=== PATIENT | male | born 1940 | race Caucasian/White ===

== ENCOUNTER 2018-06-10 11:46 | Inpatient (IN) | payer MEDICARE, OTHER ==
[~2018-06-10] VITALS: Ht 172.7 cm; Wt 80.0 kg
[2018-06-10] MEDS ORDERED: CEFTRIAXONE 1 GM/50 ML (PMX) 50 ML IVPB ONE (16:30)
[2018-06-10] MEDS ORDERED: SOD CHLORIDE 0.9% 1,000 ML IV SCH (16:58)
[2018-06-10] MEDS ORDERED: NACL 0.9% 3 ML SYG IV SCH (17:00)
[2018-06-10] MEDS ORDERED: ACETAMINOPHEN 325 MG TAB PO PRN ×2 (17:00)
[2018-06-10] MEDS ORDERED: PERMETHRIN 1% 59 ML TOP ONE (17:00)
[2018-06-10] MEDS ORDERED: VANCOMYCIN IV PER PHARMACY XX SCH (17:00)
[2018-06-10] MEDS ORDERED: HYDROCODONE/APAP (5/325) TAB PO PRN (17:00)
[2018-06-10] MEDS ORDERED: morphine 2 MG INJ IV PRN (17:00)
[2018-06-10] MEDS ORDERED: ONDANSETRON 4 MG INJ IV PRN (17:00)
--- NOTE | 2018-06-10 17:32 | HP ---
Date/Time of Note Date/Time of Note DATE: 06/10/18 TIME: 17:31 Assessment/Plan VTE Prophylaxis Pharmacological prophylaxis: other Lines/Catheters IV Catheter Type (from Nrs): Peripheral IV Assessment/Plan Hospital Course Objective Physical exam General: Patient is laying in bed and answers questions appropriately Mentation: Patient is alert and oriented 4, Head: Normocephalic atraumatic Eyes: EOMI, pupils reactive to light Neck: Supple, nontender, midline Respiratory: Clear to auscultation bilaterally Cardiovascular: regular rate, no obvious murmurs Gastrointestinal: non-tender to palpation, bowel sounds heard. Neurological: Moves all extremities spontaneously Genitourinary: Very large left-sided inguinal hernia Skin: Bilateral lower extremity erythema, left side worse than right. Left side has some mild pus however no fluctuant areas of confirmed abscess. Assessment and plan Sepsis -Very mild, tachycardia, white count, lower extremity source -IV antibiotic, broad-spectrum -Lactic acid pending -blood cultures -IV fluid Bilateral cellulitis, left worse than right -Broad-spectrum antibiotic, due to homelessness will do both thank and Zosyn -ID consulted -CT of the lower extremity will be done due to severity of wound to rule out abscess, patient states he has a metal plate in his head so will defer MRI until x-ray confirms no plate. -Venous ultrasound to rule out DVT -Echocardiogram pending to help rule out cardiac causes of bilateral venous stasis versus cellulitis Mood disorder -Patient is paranoid, questionable schizophrenia, lipsmacking movements -Not suicidal, very pleasant, will consult kameron Redmond nurse practitioner for medication management Hypertension -Controlled now, monitor Anemia -No apparent source of bleeding, may be chronic -Iron studies and other anemia workup pending Large left-sided inguinal hernia -Asymptomatic, patient had for 10 years, follow-up outpatient. Disposition -IV antibiotics, infectious disease and psychiatry consultation appreciated Result Diagram: 06/10/18 1549 06/10/18 1549 Results 24hrs Laboratory Tests Test 06/10/18 15:49 White Blood Count 11.0 H Red Blood Count 2.94 L Hemoglobin 8.2 L Hematocrit 25.9 L Mean Corpuscular Volume 88.1 Mean Corpuscular Hemoglobin 27.9 L Mean Corpuscular Hemoglobin Concent 31.7 L Red Cell Distribution Width 14.0 Platelet Count 431 H Mean Platelet Volume 8.8 Immature Granulocytes % 0.500 H Neutrophils % 73.1 Lymphocytes % 8.0 L Monocytes % 7.6 Eosinophils % 10.3 H Basophils % 0.5 Nucleated Red Blood Cells % 0.0 Immature Granulocytes # 0.050 H Neutrophils # 8.0 H Lymphocytes # 0.9 Monocytes # 0.8 Eosinophils # 1.1 H Basophils # 0.1 Nucleated Red Blood Cells # 0.0 Absolute Reticulocyte Count 0.071 Percent Reticulocyte Count 2.4 H Sodium Level 144 Potassium Level 4.1 Chloride Level 103 Carbon Dioxide Level 33 H Anion Gap 8 Blood Urea Nitrogen 17 Creatinine 0.76 Est Glomerular Filtrat Rate mL/min Glucose Level 113 Calcium Level 9.2 Total Bilirubin 0.1 L Direct Bilirubin 0.00 Indirect Bilirubin 0.1 Aspartate Amino Transf (AST/SGOT) 22 Alanine Aminotransferase (ALT/SGPT) 18 Alkaline Phosphatase 92 Total Protein 6.8 Albumin 3.5 Globulin 3.30 H Albumin/Globulin Ratio 1.06 HPI/ROS Admit Date/Time Admit Date/Time Hx of Present Illness Patient is a homeless male with unknown past medical history who states that he was on the streets and came in complaining of left leg pain. Upon entry to the ED patient was noted to have a copious amount of bugs and what appeared to be lice on his head and emergency staff admitted patient for bila teral cellulitis. Patient also has a very large inguinal hernia on the left however he states that he has had this for over 10 years and does not bother him. Patient only complains of leg pain worse on the left and during this time he has already been decontaminated by the ED staff and appears clean however his da silva was shaved off and he does have lipsmacking movement and states that he is constantly paranoid. ED staff has also talked to him and explained that he needs constant redirection and states that something about Obama and other issues. Patient appears very comfortable patient denies chest pain, abdominal pain, nausea, vomiting, headache PMH/Family/Social Past Medical History Medications Current Medications Ceftriaxone Sodium 50 ml @ 100 mls/hr ONCE ONCE IVPB Last administered on 06/10/18at 16:54; Admin Dose 100 MLS/HR; Start 06/10/18 at 16:30; Stop 06/10/18 at 16:59 Ondansetron HCl (Zofran Inj) 4 mg BRIDGE ORDER PRN IV NAUSEA AND/OR VOMITING; Start 06/10/18 at 17:00; Stop 06/11/18 at 16:59 Acetaminophen (Tylenol Tab) 650 mg ER BRIDGE PRN PO MILD PAIN(1-3)OR ELEVATED TEMP; Start 06/10/18 at 17:00; Stop 06/11/18 at 16:59 Coded Allergies: No Known Allergy (Unverified , 06/10/18) Social History Smoking Status: Current every day smoker Exam/Review of Systems Vital Signs Vitals Vital Signs Date Temp Pulse Resp B/P (MAP) Pulse Ox O2 O2 Flow FiO2 Time Delivery Rate 06/10/18 98.1 90 22 119/53 100 Room Air 15:16 (75) LITZY MARCIAL Jun 10, 2018 17:32
[2018-06-10] MEDS ORDERED: VANCOMYCIN 1.5 GM in SOD CHLORIDE 0.9% 250 ML IVPB ONE (18:00)
--- NOTE | 2018-06-10 19:05 | ERD ---
ER Documentation Chief Complaint Chief Complaint LEFT LEG PAIN, BIZARRE BEHAVIOR HPI 78-year-old male homeless presenting with complaints of left leg pain. Patient is delusional but very cooperative. He states that he has been homeless for quite some time now with his last admission to the hospital 1 year ago. He was then in a fpc facility then discharged to the street. He is clearly unable to care for himself. Otherwise he does not complain of anything really. ROS All systems reviewed and are negative except as per history of present illness. Medications Home Meds No Active Prescriptions or Reported Meds Allergies Allergies: Coded Allergies: No Known Allergy (Unverified , 06/10/18) PMhx/Soc History of Surgery: Yes (appendectomy, tonscillectomy) Hx Miscellaneous Medical Probl: Yes (Left inguinal hernia) Hx Alcohol Use: No Hx Substance Use: No Hx Tobacco Use: Yes Smoking Status: Current every day smoker FmHx Family History: No diabetes Physical Exam Vitals Vital Signs Date Temp Pulse Resp B/P (MAP) Pulse Ox O2 O2 Flow FiO2 Time Delivery Rate 06/10/18 98.1 90 22 119/53 100 Room Air 15:16 (75) 06/10/18 98.1 74 18 173/74 99 11:50 (107) Physical Exam Const: Disheveled, unkempt, covered with lice Head: Atraumatic Eyes: Normal Conjunctiva ENT: Dry mucous membranes Neck: Full range of motion. No meningismus. Resp: Clear to auscultation bilaterally Cardio: Regular rate and rhythm, no murmurs Abd: Soft, non tender, non distended. Normal bowel sounds : Very large left inguinal hernia with no overlying skin changes and no tenderness to palpation. Penis appears normal. Scrotum normal. Skin: Cellulitis bilateral lower extremities. Covered with lice. Back: No midline or flank tenderness Ext: Bilateral lower extremity trace nonpitting edema with extensive cellulitis and skin breakdown. No obvious abscesses noted. No necrotic tissue noted. Neur: Awake and alert, oriented to self and place, no facial asymmetry, strength and sensations intact grossly Psych: Normal Mood and Affect. Delusional, no SI or HI Result Diagram: 06/10/18 1549 06/10/18 1549 Results 24 hrs Laboratory Tests Test 06/10/18 15:49 White Blood Count 11.0 10^3/ul Red Blood Count 2.94 10^6/ul Hemoglobin 8.2 g/dl Hematocrit 25.9 % Mean Corpuscular Volume 88.1 fl Mean Corpuscular Hemoglobin 27.9 pg Mean Corpuscular Hemoglobin Concent 31.7 g/dl Red Cell Distribution Width 14.0 % Platelet Count 431 10^3/UL Mean Platelet Volume 8.8 fl Immature Granulocytes % 0.500 % Neutrophils % 73.1 % Lymphocytes % 8.0 % Monocytes % 7.6 % Eosinophils % 10.3 % Basophils % 0.5 % Nucleated Red Blood Cells % 0.0 /100WBC Immature Granulocytes # 0.050 10^3/ul Neutrophils # 8.0 10^3/ul Lymphocytes # 0.9 10^3/ul Monocytes # 0.8 10^3/ul Eosinophils # 1.1 10^3/ul Basophils # 0.1 10^3/ul Nucleated Red Blood Cells # 0.0 10^3/ul Absolute Reticulocyte Count 0.071 X10^6 Percent Reticulocyte Count 2.4 % Sodium Level 144 mmol/L Potassium Level 4.1 mmol/L Chloride Level 103 mmol/L Carbon Dioxide Level 33 mmol/L Anion Gap 8 Blood Urea Nitrogen 17 mg/dl Creatinine 0.76 mg/dl Est Glomerular Filtrat Rate mL/min mL/min Glucose Level 113 mg/dl Calcium Level 9.2 mg/dl Iron Level 39 ug/dl Total Iron Binding Capacity 294 ug/dl Percent Iron Saturation 13 % SAT Ferritin 27.6 ng/ml Total Bilirubin 0.1 mg/dl Direct Bilirubin 0.00 mg/dl Indirect Bilirubin 0.1 mg/dl Aspartate Amino Transf (AST/SGOT) 22 IU/L Alanine Aminotransferase (ALT/SGPT) 18 IU/L Alkaline Phosphatase 92 IU/L Lactate Dehydrogenase 635 IU/L Total Protein 6.8 g/dl Albumin 3.5 g/dl Globulin 3.30 g/dl Albumin/Globulin Ratio 1.06 Current Medications Medications Dose Sig/Concetta Start Time Status Last (Trade) Ordered Route PRN Stop Time Admin Dose Reason Admin Ceftriaxone 50 ml @ ONCE ONCE 06/10/18 DC 06/10/18 Sodium 100 mls/hr IVPB 16:30 06/10/18 16:54 16:59 Procedures/MDM EMERGENT LABS AND DIAGNOSTIC STUDIES: Lab Results above were reviewed and interpreted by me. CBC: Mild anemia with thrombocytosis. CMP: No evidence of electrolyte abnormality, renal failure, hypoglycemia, liver failure, or biliary obstruction Initial Nursing notes reviewed. Previous Medical Records requested via the Electronic Health Record. EMERGENCY DEPARTMENT COURSE / MEDICAL DECISION MAKING: This homeless male that came in in the very bad condition covered with lice. He is clearly very gravely disabled and unable to care for himself. Decontamination was done in the ED. The patient has bilateral lower extremity cellulitis on exam. Inguinal hernia does not seem incarcerated. Patient will require admission for treatment of his cellulitis and likely fpc facility placement as he is unable to care for himself. Antibiotics were started. No evidence of sepsis. I also think his psychiatric issues need to be addressed as well. Accepting Care Team: Current data and ongoing care discussed. Time: Time of admission Primary Provider: Dr. Chaidez Departure Diagnosis: Primary Impression: Bilateral lower leg cellulitis Additional Impressions: Psychosis Psychosis type: unspecified psychosis type Qualified Codes: F29 - Unspecified psychosis not due to a substance or known physiological condition Body lice infestation Condition: KAMINI Gibson MD Jun 10, 2018 19:05
[2018-06-10] MEDS: PIPER-TAZO 3.375 GM IV (PMX) 100 ML IVPB SCH (20:04)
[2018-06-10] MEDS: HEPARIN 5,000 UNIT/1 ML VIAL SC SCH (21:13)
[2018-06-10 21:41] VITALS: Ht 172.7 cm; Wt 80.0 kg
--- NOTE | 2018-06-10 22:36 | CONS ---
DATE OF ADMISSION: 06/10/2018 DATE OF CONSULTATION: 06/10/2018 REASON FOR CONSULTATION: Antibiotic management. HISTORY OF PRESENT ILLNESS: Shaw Yu is a 78-year-old homeless male who presented to the emergen cy room with complaints of left leg pain. The patient seems to be delusional. He has been homeless for quite a long time. His last admissions in the hospital 1 year ago. The patient cannot care for himself. PAST SURGICAL HISTORY: Status post appendectomy, status post tonsillectomy, status post left inguina l hernia repair. FAMILY HISTORY: Noncontributory. SOCIAL HISTORY: He is a current every day smoker, does not drink or abuse drugs. ALLERGIES: NONE TO PENICILLIN, SULFA OR FOODS. MEDICATIONS: Per chart. REVIEW OF SYSTEMS: Noncontributory. PHYSICAL EXAMINATION: GENERAL: The patient is disheveled, unkempt covered with lice. SKIN: Without generalized rash. He is covered with lice. HEENT: Within normal limits. NECK: Supple. LYMPH NODES: None palpable. CHEST: Decreased breath sounds at the bases. HEART: Without murmur or gallop. ABDOMEN: Soft, nontender, without organosplenomegaly or masses. RECTAL AND GENITAL EXAM: There is a very large left inguinal hernia. EXTREMITIES: Without cyanosis or clubbing. He has bilateral lower extremity nonpitting edema with e xtensive cellulitis and skin breakdown. NEUROLOGIC: No focal neurological abnormalities. The patient appears to be delusional. ANCILLARY LABORATORY DATA: White count is 11,000, H and H of 8.2 and 25.9, platelet count 431,000. BUN and creatinine 17/0.76. IMPRESSION AND PLAN: The patient comes in with bilateral cellulitis, left greater than right. He is currently on vancomycin and Zosyn. I agree with the current therapy. A CT scan of the lower extrem ity is scheduled to rule out abscess. He says he has a metal plate in his head, so the MRI will be d eferred until x-ray confirms no plate. I will dictate my findings to the hospitalist. I want to tim nk them for asking us to see this unfortunate gentleman in consultation. Dictated By: LUISITO KENNEY MD, JD/SALVADOR Conf#: [id number] DID#: [id number] CC: LITZY MARCIAL MD;*EndCC*
[2018-06-11] MEDS: PIPER-TAZO 3.375 GM IV (PMX) 100 ML IVPB SCH ×4 (00:47→17:21)
[2018-06-11 01:42] VITALS: BP 158/88; PULSE 90; RESP 18
[2018-06-11] MEDS: PANTOPRAZOLE (EC) 40 MG TAB PO SCH (05:26)
[2018-06-11] MEDS: HEPARIN 5,000 UNIT/1 ML VIAL SC SCH ×3 (05:26→22:00)
[2018-06-11 07:30] VITALS: BP 133/65; PULSE 76; RESP 18
[2018-06-11] MEDS: VANCOMYCIN 1 GM 250 ML IVPB SCH ×2 (09:09→22:29)
--- NOTE | 2018-06-11 12:09 | QN ---
Documentation Comment Refused to be seen, states psychiatrist are crooks. FATOUMATA KABA NP Jun 11, 2018 12:09
[2018-06-11] MEDS: SOD FERRIC GLUC COMPLX 125 MG in SOD CHLORIDE 0.9% 100 ML IVPB SCH (14:06)
[2018-06-11 14:15] VITALS: BP 142/68; PULSE 88; RESP 16
--- NOTE | 2018-06-11 14:37 | CONS ---
Date/Time of Note Date/Time of Note DATE: 06/11/18 TIME: 14:36 Assessment/Plan Assessment/Plan Hospital Course Patient is alert in no distress. He is afebrile with a T-max of 99.7 no labs today wound culture growing gram-negative rods Antimicrobials Rigobertoo Jose Physical examination: Well-developed well-nourished elderly man who is alert in no distress. Head atraumatic normocephalic sclera nonicteric. Neck is supple. Chest rise symmetrical. Breath sounds clear. Heart: S1-S2. Abdomen soft bowel sounds present. Extremities with bilateral lower extremities chronic changes. Left lower extremity cellulitis with some scaly dry skin no drainage presently Assessment: 1. Acute on chronic bilateral lower extremity cellulitis, left more than right 2. Systemic inflammatory response syndrome with leukocytosis on admission 3. Homelessness 4. Anemia Plan: Patient remained stable we will continue him on current regimen and await for final cultures Result Diagram: 06/10/18 1549 06/10/18 1549 Results 24hrs Laboratory Tests Test 06/10/18 15:49 06/10/18 17:35 White Blood Count 11.0 H Red Blood Count 2.94 L Hemoglobin 8.2 L Hematocrit 25.9 L Mean Corpuscular Volume 88.1 Mean Corpuscular Hemoglobin 27.9 L Mean Corpuscular Hemoglobin Concent 31.7 L Red Cell Distribution Width 14.0 Platelet Count 431 H Mean Platelet Volume 8.8 Immature Granulocytes % 0.500 H Neutrophils % 73.1 Lymphocytes % 8.0 L Monocytes % 7.6 Eosinophils % 10.3 H Basophils % 0.5 Nucleated Red Blood Cells % 0.0 Immature Granulocytes # 0.050 H Neutrophils # 8.0 H Lymphocytes # 0.9 Monocytes # 0.8 Eosinophils # 1.1 H Basophils # 0.1 Nucleated Red Blood Cells # 0.0 Absolute Reticulocyte Count 0.071 Percent Reticulocyte Count 2.4 H Sodium Level 144 Potassium Level 4.1 Chloride Level 103 Carbon Dioxide Level 33 H Anion Gap 8 Blood Urea Nitrogen 17 Creatinine 0.76 Est Glomerular Filtrat Rate mL/min Glucose Level 113 Calcium Level 9.2 Iron Level 39 Total Iron Binding Capacity 294 Percent Iron Saturation 13 L Ferritin 27.6 Total Bilirubin 0.1 L Direct Bilirubin 0.00 Indirect Bilirubin 0.1 Aspartate Amino Transf (AST/SGOT) 22 Alanine Aminotransferase (ALT/SGPT) 18 Alkaline Phosphatase 92 Lactate Dehydrogenase 635 H Total Protein 6.8 Albumin 3.5 Globulin 3.30 H Albumin/Globulin Ratio 1.06 POC Venous Lactate 1.3 Consultation Date/Type/Reason Admit Date/Time Jun 10, 2018 at 16:55 Initial Consult Date Type of Consult id Exam/Review of Systems Vital Signs Vitals Vital Signs Date Temp Pulse Resp B/P (MAP) Pulse Ox O2 O2 Flow FiO2 Time Delivery Rate 06/11/18 99.0 88 16 142/68 95 Room Air 14:15 (92) Intake and Output 06/10/18 06/10/18 06/11/18 1515:00 23:00 07:00 IntakeIntake Total 150 ml 1210 ml OutputOutput Total 400 ml BalanceBalance 150 ml 810 ml Medications Medications Current Medications IV Flush (NS 3 ml) 3 ml PER PROTOCOL IV ; Start 06/10/18 at 17:00 Acetaminophen (Tylenol Tab) 650 mg Q6H PRN PO PAIN LEVEL 1-3 OR FEVER; Start 06/10/18 at 17:00 Acetaminophen/ Hydrocodone Bitart ([place] (5/325)) 1 tab Q6H PRN PO PAIN LEVEL 4-6; Start 06/10/18 at 17:00 Morphine Sulfate (morphine) 2 mg Q4H PRN IV PAIN LEVEL 7-10; Start 06/10/18 at 17:00 Pantoprazole (Protonix Tab) 40 mg DAILY@06 PO ; Start 06/11/18 at 06:00 Vancomycin HCl (Vanco Iv Per Pharmacy) VANCOMYCIN PER PHARMACY PER PROTOCOL XX ; Start 06/10/18 at 17:00 Piperacillin Sod/ Tazobactam Sod 100 ml @ 200 mls/hr Q6 IVPB Last administered on 06/11/18at 11:45; Admin Dose 200 MLS/HR; Start 06/10/18 at 18:00 Heparin Sodium (Porcine) (Heparin (5000 Units/1ml)) 5,000 unit Q8 SC ; Start 06/10/18 at 22:00 Vancomycin HCl 250 ml @ 125 mls/hr Q12H IVPB Last administered on 06/11/18at 09:09; Admin Dose 125 MLS/HR; Start 06/11/18 at 10:00 Ferric Sodium Gluconate Complex 125 mg/Sodium Chloride 100 ml @ 100 mls/hr DAILY@1300 IVPB Last administered on 06/11/18at 14:06; Admin Dose 100 MLS/HR; Start 06/11/18 at 13:00; Stop 06/13/18 at 13:59 Miscellaneous Information (*Rx Drug Level Order Reminder*) 1 ONCE ONCE XX ; Start 06/12/18 at 09:00; Stop 06/12/18 at 09:01 DEMOND HOWELL NP Jun 11, 2018 14:37
--- NOTE | 2018-06-11 14:52 | PN ---
Date/Time of Note Date/Time of Note DATE: 06/11/18 TIME: 14:50 Objective Vitals Vital Signs Date Temp Pulse Resp B/P (MAP) Pulse Ox O2 O2 Flow FiO2 Time Delivery Rate 06/11/18 99.0 88 16 142/68 95 Room Air 14:15 (92) Intake and Output 06/10/18 06/10/18 06/11/18 1515:00 23:00 07:00 IntakeIntake Total 150 ml 1210 ml OutputOutput Total 400 ml BalanceBalance 150 ml 810 ml Results Result Diagram: 06/10/18 1549 06/10/18 1549 Medications Medications Current Medications IV Flush (NS 3 ml) 3 ml PER PROTOCOL IV ; Start 06/10/18 at 17:00 Acetaminophen (Tylenol Tab) 650 mg Q6H PRN PO PAIN LEVEL 1-3 OR FEVER; Start at 17:00 Acetaminophen/ Hydrocodone Bitart ([place] (5/325)) 1 tab Q6H PRN PO PAIN LEVEL 4-6; Start 06/10/18 at 17:00 Morphine Sulfate (morphine) 2 mg Q4H PRN IV PAIN LEVEL 7-10; Start 06/10/18 at 17:00 Pantoprazole (Protonix Tab) 40 mg DAILY@06 PO ; Start 06/11/18 at 06:00 Vancomycin HCl (Vanco Iv Per Pharmacy) VANCOMYCIN PER PHARMACY PER PROTOCOL XX ; Start 06/10/18 at 17:00 Piperacillin Sod/ Tazobactam Sod 100 ml @ 200 mls/hr Q6 IVPB Last administered on 06/11/18at 11:45; Admin Dose 200 MLS/HR; Start 06/10/18 at 18:00 Heparin Sodium (Porcine) (Heparin (5000 Units/1ml)) 5,000 unit Q8 SC ; Start 06/10/18 at 22:00 Vancomycin HCl 250 ml @ 125 mls/hr Q12H IVPB Last administered on 06/11/18at 09:09; Admin Dose 125 MLS/HR; Start 06/11/18 at 10:00 Ferric Sodium Gluconate Complex 125 mg/Sodium Chloride 100 ml @ 100 mls/hr DAILY@1300 IVPB Last administered on 06/11/18at 14:06; Admin Dose 100 MLS/HR; Start 06/11/18 at 13:00; Stop 06/13/18 at 13:59 Miscellaneous Information (*Rx Drug Level Order Reminder*) 1 ONCE ONCE XX ; Start 06/12/18 at 09:00; Stop 06/12/18 at 09:01 VTE Prophylaxis [place] [facility] [place] risk: 3 [place]CD applied [place] [facility] [place] Yes Lines/Catheters IV Catheter Type: Peace in Place: No Assessment/Plan Hospital Course subjective refuses almost everything including law draw and CT scan, but gets IV medication Objective Physical exam General: Patient is laying in bed and answers questions appropriately Mentation: Patient is alert and oriented 4, Head: Normocephalic atraumatic Eyes: EOMI, pupils reactive to light Neck: Supple, nontender, midline Respiratory: Clear to auscultation bilaterally Cardiovascular: regular rate, no obvious murmurs Gastrointestinal: non-tender to palpation, bowel sounds heard. Neurological: Moves all extremities spontaneously Genitourinary: Very large left-sided inguinal hernia Skin: Bilateral lower extremity erythema, left side worse than right. Left side has some mild pus however no fluctuant areas of confirmed abscess. Assessment and plan Sepsis -Very mild, tachycardia, white count, lower extremity source -IV antibiotic, broad-spectrum -Lactic acid noted -blood cultures -IV fluid Bilateral cellulitis, left worse than right -Broad-spectrum antibiotic, due to homelessness will do both vancomycin and Zosyn -ID consulted -CT of the lower extremity or MRI refused per patient -Venous ultrasound to rule out DVT, negative -Echocardiogram pending to help rule out cardiac causes of bilateral venous stasis versus cellulitis Mood disorder -Patient is paranoid, questionable schizophrenia, lipsmacking movements -Not suicidal, very pleasant, will consult [facility] psych nurse practitioner for medication management, however patient refused to be seen Hypertension -Controlled now, monitor Anemia -No apparent source of bleeding, may be chronic -likely iron deficient -IV iron for now Large left-sided inguinal hernia -Asymptomatic, patient had for 10 years, follow-up outpatient. Disposition -IV antibiotics, ID recs -patient refuses lab draws and imaging LITZY MARCIAL Jun 11, 2018 14:52
--- NOTE | 2018-06-11 19:36 | RADRPT ---
Echocardiogram Report Patient Name: CIRILO AWAD Gender: Male Date: 1940 Study Date: 11-Jun-2018 Flight Attendant Inflight Services: [employer] [facility] Location: [address] Ref. Physician: LITZY MARCIAL Quality: Adequate Procedures: Transthoracic echocardiogram with complete 2D, M-Mode, and doppler examination. Indications: Congestive Heart Failure?. 2D/M Mode Doppler Measurement Value Normal Ranges Measurement Value Normal Ranges LVIDd 2D 5.0 3.5 - 5.6 cm AV Peak Jeff 1.4 m/sec LVIDs 2D 3.3 2.1 - 4.1 cm AV Peak PG 8.0 mmHg FS 2D 34.8 % LVOT Peak Jeff 1.3 m/sec LVPWd 2D 1.0 0.6 - 1.1 cm LVOT Peak PG 7.0 mmHg IVSd 2D 1.4 0.6 - 1.1 cm MV E Peak Jeff 1.0 m/sec IVS/LVPW 2D 1.4 MV A Peak Jeff 1.1 m/sec AoR Diam 2D 3.3 2.0 - 3.7 cm MV E/A 0.8 LA/Ao 2D 1 0 - 1 MV Decel Time 194 msec EDV 2D 125.0 cm3 MV E/A 0.8 ESV 2D 34.6 cm3 TR Peak Jeff 3.0 m/sec LA Dimen 2D 4.2 2.3 - 4.0 cm TR Peak PG 36.0 mmHg RVSP 51.0 mmHg Findings Left Ventricle: Normal left ventricular systolic function. Normal left ventricular cavity size. Sigmoid septum. Ejection fraction is visually estimated at 60 %. Tissue Doppler/Mitral Doppler indices are consistent with impaired relaxation (Stage I diastolic dysfunction). Right Ventricle: Normal right ventricular size. Normal right ventricular systolic function. Left Atrium: There is mild enlargement of left atrium. Right Atrium: The right atrium is normal in size. Mitral Valve: Mild mitral leaflet calcification. Mild mitral annular calcification. Trace mitral regurgitation. Aortic Valve: No significant aortic stenosis or insufficiency. Aortic cusps appear mildly calcified. Trace aortic valve regurgitation. Tricuspid Valve: Normal appearance of the tricuspid valve. Estimated peak PA systolic pressure 51 mmHg. There is trace tricuspid regurgitation. Pulmonic Valve: Pulmonic valve not well visualized. There is trace pulmonic regurgitation. Pericardium: Normal pericardium with no significant pericardial effusion. Aorta: Normal aortic root. IVC: Dilated inferior vena cava with poor inspiratory collapse consistent with elevated right atrial pressures. Conclusions Normal left ventricular systolic function. Normal left ventricular cavity size. Sigmoid septum. Ejection fraction is visually estimated at 60 %. Tissue Doppler/Mitral Doppler indices are consistent with impaired relaxation (Stage I diastolic dysfunction). Normal right ventricular size. Normal right ventricular systolic function. There is mild enlargement of left atrium. The right atrium is normal in size. Estimated peak PA systolic pressure 51 mmHg. There is trace tricuspid regurgitation. No significant valvular stenosis or regurgitation seen. Normal pericardium with no significant pericardial effusion. Electronically Signed By: Henrry Aly 11-Jun-2018 19:35:59 -0800 Patient Name: CIRILO AWAD Study Date: [id number]
[2018-06-11 19:41] VITALS: BP 162/74; PULSE 93; RESP 18
[2018-06-12] MEDS: PIPER-TAZO 3.375 GM IV (PMX) 100 ML IVPB SCH ×3 (00:50→13:33)
[2018-06-12] MEDS: PANTOPRAZOLE (EC) 40 MG TAB PO SCH (05:40)
[2018-06-12] MEDS: HEPARIN 5,000 UNIT/1 ML VIAL SC SCH ×3 (05:40→21:12)
[2018-06-12 08:32] VITALS: BP 163/78; PULSE 86; RESP 18
[2018-06-12] MEDS: VANCOMYCIN 1 GM 250 ML IVPB SCH (10:55)
[2018-06-12] MEDS: LISINOPRIL 5 MG TAB PO SCH (13:33)
[2018-06-12] MEDS ORDERED: morphine LIQ (10 MG/5 ML) CUP PO PRN (14:30)
--- NOTE | 2018-06-12 14:46 | CONS ---
Date/Time of Note Date/Time of Note DATE: 06/12/18 TIME: 14:45 Assessment/Plan Assessment/Plan Hospital Course Patient is alert in no distress. Left lower extremity drainage culture growing Proteus vulgaris, susceptible to Bactrim. Antimicrobials Vanco Zosyn Physical examination: Well-developed well-nourished elderly man who is alert in no distress. Head atraumatic normocephalic sclera nonicteric. Neck is supple. Chest rise symmetrical. Breath sounds clear. Heart: S1-S2. Abdomen soft bowel sounds present. Extremities with bilateral lower extremities chronic changes. Left lower extremity cellulitis with some scaly dry skin no drainage presently Assessment: 1. Acute on chronic bilateral lower extremity cellulitis, left more than right 2. Systemic inflammatory response syndrome with leukocytosis on admission 3. Homelessness 4. Anemia Plan: Patient remained stable. Will change antibiotics to oral Bactrim and add Silvadene cream to lower extremities Result Diagram: 06/11/18 1524 06/11/18 1524 Results 24hrs Laboratory Tests Test 06/11/18 15:24 06/12/18 09:49 White Blood Count 10.3 Red Blood Count 2.70 L Hemoglobin 7.5 L Hematocrit 24.0 L Mean Corpuscular Volume 88.9 Mean Corpuscular Hemoglobin 27.8 L Mean Corpuscular Hemoglobin Concent 31.3 L Red Cell Distribution Width 14.1 Platelet Count 351 Mean Platelet Volume 8.8 Immature Granulocytes % 0.400 Neutrophils % 71.1 Lymphocytes % 7.8 L Monocytes % 7.2 Eosinophils % 13.0 H Basophils % 0.5 Nucleated Red Blood Cells % 0.0 Immature Granulocytes # 0.040 H Neutrophils # 7.3 Lymphocytes # 0.8 Monocytes # 0.7 Eosinophils # 1.3 H Basophils # 0.1 Nucleated Red Blood Cells # 0.0 Sodium Level 137 Potassium Level 4.3 Chloride Level 104 Carbon Dioxide Level 27 Anion Gap 6 Blood Urea Nitrogen 14 Creatinine 0.73 Est Glomerular Filtrat Rate mL/min Glucose Level 102 Hemoglobin A1c 6.2 H Calcium Level 8.7 Magnesium Level 2.1 Total Bilirubin 0.0 L Direct Bilirubin 0.00 Indirect Bilirubin 0.0 Aspartate Amino Transf (AST/SGOT) 16 Alanine Aminotransferase (ALT/SGPT) 12 L Alkaline Phosphatase 79 Total Protein 6.5 Albumin 2.9 L Globulin 3.60 H Albumin/Globulin Ratio 0.80 Vancomycin Level Trough 11.5 Consultation Date/Type/Reason Admit Date/Time Jun 10, 2018 at 16:55 Initial Consult Date Type of Consult id Exam/Review of Systems Vital Signs Vitals Vital Signs Date Temp Pulse Resp B/P (MAP) Pulse Ox O2 O2 Flow FiO2 Time Delivery Rate 06/12/18 99.2 86 18 163/78 93 Room Air 08:32 (106) Intake and Output 06/11/18 06/11/18 06/12/18 1515:00 23:00 07:00 IntakeIntake Total 1290 ml 1120 ml 450 ml OutputOutput Total 1140 ml 1075 ml 350 ml BalanceBalance 150 ml 45 ml 100 ml Medications Medications Current Medications IV Flush (NS 3 ml) 3 ml PER PROTOCOL IV ; Start 06/10/18 at 17:00 Acetaminophen (Tylenol Tab) 650 mg Q6H PRN PO PAIN LEVEL 1-3 OR FEVER; Start 06/10/18 at 17:00 Acetaminophen/ Hydrocodone Bitart ([place] (5/325)) 1 tab Q6H PRN PO PAIN LEVEL 4-6; Start 06/10/18 at 17:00 Pantoprazole (Protonix Tab) 40 mg DAILY@06 PO ; Start 06/11/18 at 06:00 Vancomycin HCl (Vanco Iv Per Pharmacy) VANCOMYCIN PER PHARMACY PER PROTOCOL XX ; Start 06/10/18 at 17:00 Piperacillin Sod/ Tazobactam Sod 100 ml @ 200 mls/hr Q6 IVPB Last administered on 06/12/18at 13:33; Admin Dose 200 MLS/HR; Start 06/10/18 at 18:00 Heparin Sodium (Porcine) (Heparin (5000 Units/1ml)) 5,000 unit Q8 SC ; Start 06/10/18 at 22:00 Vancomycin HCl 250 ml @ 125 mls/hr Q12H IVPB Last administered on 06/12/18at 10:55; Admin Dose 125 MLS/HR; Start 06/11/18 at 10:00 Ferric Sodium Gluconate Complex 125 mg/Sodium Chloride 100 ml @ 100 mls/hr DAILY@1300 IVPB Last administered on 06/11/18at 14:06; Admin Dose 100 MLS/HR; Start 06/11/18 at 13:00; Stop 06/13/18 at 13:59 Lisinopril (Zestril) 5 mg DAILY PO Last administered on 06/12/18at 13:33; Admin Dose 5 MG; Start 06/12/18 at 11:30 Morphine Sulfate (morphine) 6 mg Q4H PRN PO SEVERE PAIN LEVEL 7-10; Start 06/12/18 at 14:30 DEMOND HOWELL NP Jun 12, 2018 14:46
[2018-06-12] MEDS: SOD FERRIC GLUC COMPLX 125 MG in SOD CHLORIDE 0.9% 100 ML IVPB SCH (15:17)
--- NOTE | 2018-06-12 15:23 | PN ---
Date/Time of Note Date/Time of Note DATE: 06/12/18 TIME: 15:21 Objective Vitals Vital Signs Date Temp Pulse Resp B/P (MAP) Pulse Ox O2 O2 Flow FiO2 Time Delivery Rate 06/12/18 99.2 86 18 163/78 93 Room Air 08:32 (106) Intake and Output 06/11/18 06/11/18 06/12/18 1515:00 23:00 07:00 IntakeIntake Total 1290 ml 1120 ml 450 ml OutputOutput Total 1140 ml 1075 ml 350 ml BalanceBalance 150 ml 45 ml 100 ml Results Result Diagram: 06/11/18 1524 06/11/18 1524 Medications Medications Current Medications IV Flush (NS 3 ml) 3 ml PER PROTOCOL IV ; Start 06/10/18 at 17:00 Acetaminophen (Tylenol Tab) 650 mg Q6H PRN PO PAIN LEVEL 1-3 OR FEVER; Start 06/10/18 at 17:00 Acetaminophen/ Hydrocodone Bitart ([place] (5/325)) 1 tab Q6H PRN PO PAIN LEVEL 4-6; Start 06/10/18 at 17:00 Pantoprazole (Protonix Tab) 40 mg DAILY@06 PO ; Start 06/11/18 at 06:00 Heparin Sodium (Porcine) (Heparin (5000 Units/1ml)) 5,000 unit Q8 SC ; Start at 22:00 Ferric Sodium Gluconate Complex 125 mg/Sodium Chloride 100 ml @ 100 mls/hr DAILY@1300 IVPB Last administered on 06/12/18at 15:17; Admin Dose 100 MLS/HR; Start 06/11/18 at 13:00; Stop 06/13/18 at 13:59 Lisinopril (Zestril) 5 mg DAILY PO Last administered on 06/12/18at 13:33; Admin Dose 5 MG; Start 06/12/18 at 11:30 Morphine Sulfate (morphine) 6 mg Q4H PRN PO SEVERE PAIN LEVEL 7-10; Start 06/12/18 at 14:30 Trimethoprim/ Sulfamethoxazole (Bactrim (Ds)) 1 tab BID NGT ; Start 06/12/18 at 21:00 Silver Sulfadiazine (Thermazene 1% 25 Gm) 1 applic BID TOP ; Start 06/12/18 at 21:00 VTE Prophylaxis Risk score (from Nsg)>0 risk: 3 SCD applied (from Ns): No SCD contraindication: other Lines/Catheters IV Catheter Type: Peace in Place: No Assessment/Plan Hospital Course subjective patient continues to be compliant with certain medications, but doesn't want lab draws Objective Physical exam General: Patient is laying in bed and answers questions appropriately Mentation: Patient is alert and oriented 4, Head: Normocephalic atraumatic Eyes: EOMI, pupils reactive to light Neck: Supple, nontender, midline Respiratory: Clear to auscultation bilaterally Cardiovascular: regular rate, no obvious murmurs Gastrointestinal: non-tender to palpation, bowel sounds heard. Neurological: Moves all extremities spontaneously Genitourinary: Very large left-sided inguinal hernia Skin: Bilateral lower extremity erythema, left side worse than right. Left side has some mild pus however no fluctuant areas of confirmed abscess. Assessment and plan Sepsis -Very mild, tachycardia, white count, lower extremity source -IV antibiotic now changed to oral -Lactic acid noted -blood cultures -IV fluid stopped Bilateral cellulitis, left worse than right -on bactrim now -ID consulted -CT of the lower extremity or MRI refused per patient -Venous ultrasound to rule out DVT, negative -Echocardiogram noted Mood disorder -Patient is paranoid, questionable schizophrenia, lipsmacking movements -Not suicidal, very pleasant, will consult [facility] psych nurse practitioner for medication management, however patient refused to be seen Hypertension -Controlled now, monitor Anemia -No apparent source of bleeding, may be chronic -likely iron deficient -IV iron for now Large left-sided inguinal hernia -Asymptomatic, patient had for 10 years, follow-up outpatient. Disposition -antibiotics, ID recs -patient refuses lab draws and imaging -patient wants placement, CM aware LITZY MARCIAL Jun 12, 2018 15:23
[2018-06-12 17:29] VITALS: BP 149/71; PULSE 85; RESP 18
[2018-06-12 19:46] VITALS: BP 148/70; PULSE 88; RESP 21
[2018-06-12] MEDS: SILVER SULFADIAZINE 1% 25 GM CR TOP SCH (20:58)
[2018-06-12] MEDS ORDERED: SILVER SULFADIAZINE 1% 400 GM CR TOP SCH (21:00)
[2018-06-12] MEDS: TRIMETHOPRIM/SULFAMETHOX (DS) TAB NGT SCH (21:29)
[2018-06-13 02:00] VITALS: BP 142/77; PULSE 88; RESP 20
[2018-06-13] MEDS: HEPARIN 5,000 UNIT/1 ML VIAL SC SCH ×3 (05:04→22:00)
[2018-06-13 07:55] VITALS: BP 165/80; PULSE 80; RESP 18
[2018-06-13] MEDS: TRIMETHOPRIM/SULFAMETHOX (DS) TAB NGT SCH ×2 (08:46→20:38)
[2018-06-13] MEDS: LISINOPRIL 5 MG TAB PO SCH (08:46)
[2018-06-13] MEDS: SILVER SULFADIAZINE 1% 25 GM CR TOP SCH ×2 (08:47→20:38)
[2018-06-13 11:49] VITALS: BP 120/68; PULSE 78
--- NOTE | 2018-06-13 12:06 | PN ---
Date/Time of Note Date/Time of Note DATE: 06/13/18 TIME: 11:59 Objective Vitals Vital Signs Date Temp Pulse Resp B/P (MAP) Pulse Ox O2 O2 Flow FiO2 Time Delivery Rate 06/13/18 78 120/68 11:49 (85) 06/13/18 97.7 18 94 Room Air 07:55 Intake and Output 06/12/18 06/12/18 06/13/18 1515:00 23:00 07:00 IntakeIntake Total 1670 ml 480 ml 400 ml OutputOutput Total 1575 ml 350 ml 1400 ml BalanceBalance 95 ml 130 ml -1000 ml Results Result Diagram: 06/11/18 1524 06/11/18 1524 Medications Medications Current Medications IV Flush (NS 3 ml) 3 ml PER PROTOCOL IV ; Start 06/10/18 at 17:00 Acetaminophen (Tylenol Tab) 650 mg Q6H PRN PO PAIN LEVEL 1-3 OR FEVER; Start 06/10/18 at 17:00 Acetaminophen/ Hydrocodone Bitart ([place] (5/325)) 1 tab Q6H PRN PO PAIN LEVEL 4-6; Start 06/10/18 at 17:00 Heparin Sodium (Porcine) (Heparin (5000 Units/1ml)) 5,000 unit Q8 SC ; Start 06/10/18 at 22:00 Ferric Sodium Gluconate Complex 125 mg/Sodium Chloride 100 ml @ 100 mls/hr DAILY@1300 IVPB Last administered on 06/12/18at 15:17; Admin Dose 100 MLS/HR; Start 06/11/18 at 13:00; Stop 06/13/18 at 13:59 Morphine Sulfate (morphine) 6 mg Q4H PRN PO SEVERE PAIN LEVEL 7-10; Start 06/12/18 at 14:30 Trimethoprim/ Sulfamethoxazole (Bactrim (Ds)) 1 tab BID NGT Last administered on 06/13/18at 08:46; Admin Dose 1 TAB; Start 06/12/18 at 21:00 Silver Sulfadiazine (Thermazene 1% 25 Gm) 1 applic BID TOP Last administered on 06/13/18at 08:47; Admin Dose 1 APPLIC; Start 06/12/18 at 21:00 Lisinopril (Zestril) 10 mg DAILY PO ; Start 06/14/18 at 09:00 VTE Prophylaxis Risk score (from Nsg)>0 risk: 4 SCD applied (from Ns): No SCD contraindication: other Lines/Catheters IV Catheter Type: Peace in Place: No Assessment/Plan Hospital Course subjective patient continues to be compliant with certain medications, but doesn't want lab draws Objective Physical exam General: Patient is laying in bed and answers questions appropriately Mentation: Patient is alert and oriented 4, Head: Normocephalic atraumatic Eyes: EOMI, pupils reactive to light Neck: Supple, nontender, midline Respiratory: Clear to auscultation bilaterally Cardiovascular: regular rate, no obvious murmurs Gastrointestinal: non-tender to palpation, bowel sounds heard. Neurological: Moves all extremities spontaneously Genitourinary: Very large left-sided inguinal hernia Skin: Bilateral lower extremity erythema, left side worse than right. Left side has some mild pus however no fluctuant areas of confirmed abscess. Assessment and plan Bilateral cellulitis, left worse than right -on bactrim now -ID consulted -CT of the lower extremity or MRI refused per patient -Venous ultrasound to rule out DVT, negative -Echocardiogram noted Mood disorder -Patient is paranoid, questionable schizophrenia, lipsmacking movements -Not suicidal, very pleasant, will consult [facility] psych nurse practitioner for medication management, however patient refused to be seen Hypertension -Controlled now, monitor Anemia -No apparent source of bleeding, may be chronic -likely iron deficient -IV iron for now Large left-sided inguinal hernia -Asymptomatic, patient had for 10 years, follow-up outpatient. Disposition -antibiotics, ID recs -patient refuses lab draws and imaging -patient wants placement, CM aware LITZY MARCIAL Jun 13, 2018 12:06
[2018-06-13] MEDS: SOD FERRIC GLUC COMPLX 125 MG in SOD CHLORIDE 0.9% 100 ML IVPB SCH (13:35)
[2018-06-13 13:45] VITALS: BP 137/66; PULSE 90; RESP 18
--- NOTE | 2018-06-13 19:16 | CONS ---
Date/Time of Note Date/Time of Note DATE: 06/13/18 TIME: 19:15 Assessment/Plan Assessment/Plan Hospital Course 1405 Patient is alert, feels good, no fevers Left lower extremity drainage culture growing Proteus vulgaris, susceptible to Bactrim. Antimicrobials: Bactrim Physical examination: Well-developed well-nourished elderly man who is alert in no distress. Head atraumatic normocephalic sclera nonicteric. Neck is supple. Chest rise symmetrical. Breath sounds clear. Heart: S1-S2. Abdomen soft bowel sounds present. Extremities with bilateral lower extremities chronic changes. Left lower extremity cellulitis with some scaly dry skin no drainage presently Assessment: 1. Acute on chronic bilateral lower extremity cellulitis, left more than right 2. Systemic inflammatory response syndrome with leukocytosis on admission 3. Homelessness 4. Anemia Plan: Patient remained stable. Continue abx/topical Silvadene, monitor renal f-n Result Diagram: 06/11/18 1524 06/11/18 1524 Consultation Date/Type/Reason Admit Date/Time Jun 10, 2018 at 16:55 Initial Consult Date Type of Consult id Exam/Review of Systems Vital Signs Vitals Vital Signs Date Temp Pulse Resp B/P (MAP) Pulse Ox O2 O2 Flow FiO2 Time Delivery Rate 06/13/18 97.7 90 18 137/66 92 Room Air 13:45 (89) Intake and Output 06/12/18 06/12/18 06/13/18 1515:00 23:00 07:00 IntakeIntake Total 1670 ml 480 ml 400 ml OutputOutput Total 1575 ml 350 ml 1400 ml BalanceBalance 95 ml 130 ml -1000 ml Medications Medications Current Medications IV Flush (NS 3 ml) 3 ml PER PROTOCOL IV ; Start 06/10/18 at 17:00 Acetaminophen (Tylenol Tab) 650 mg Q6H PRN PO PAIN LEVEL 1-3 OR FEVER; Start 06/10/18 at 17:00 Acetaminophen/ Hydrocodone Bitart ([place] (5/325)) 1 tab Q6H PRN PO PAIN LEVEL 4-6; Start 06/10/18 at 17:00 Heparin Sodium (Porcine) (Heparin (5000 Units/1ml)) 5,000 unit Q8 SC ; Start 06/10/18 at 22:00 Morphine Sulfate (morphine) 6 mg Q4H PRN PO SEVERE PAIN LEVEL 7-10; Start 06/12/18 at 14:30 Trimethoprim/ Sulfamethoxazole (Bactrim (Ds)) 1 tab BID NGT Last administered on 06/13/18at 08:46; Admin Dose 1 TAB; Start 06/12/18 at 21:00 Silver Sulfadiazine (Thermazene 1% 25 Gm) 1 applic BID TOP Last administered on 06/13/18at 08:47; Admin Dose 1 APPLIC; Start 06/12/18 at 21:00 Lisinopril (Zestril) 10 mg DAILY PO ; Start 06/14/18 at 09:00 DEMOND HOWELL NP Jun 13, 2018 19:16
[2018-06-13 20:00] VITALS: BP 124/60; PULSE 90; RESP 18
[2018-06-14 03:07] VITALS: BP 128/60; PULSE 74; RESP 18
[2018-06-14] MEDS: HEPARIN 5,000 UNIT/1 ML VIAL SC SCH ×3 (06:00→21:07)
[2018-06-14 07:34] VITALS: BP 132/65; PULSE 69; RESP 18
[2018-06-14] MEDS: TRIMETHOPRIM/SULFAMETHOX (DS) TAB NGT SCH ×2 (08:36→21:04)
[2018-06-14] MEDS: LISINOPRIL 10 MG TAB PO SCH (08:37)
[2018-06-14] MEDS: SILVER SULFADIAZINE 1% 25 GM CR TOP SCH ×2 (08:40→21:00)
--- NOTE | 2018-06-14 12:15 | PN ---
Date/Time of Note Date/Time of Note DATE: 06/14/18 TIME: 12:15 Objective Vitals Vital Signs Date Temp Pulse Resp B/P (MAP) Pulse Ox O2 O2 Flow FiO2 Time Delivery Rate 06/14/18 98.8 69 18 132/65 94 Room Air 07:34 (87) Intake and Output 06/13/18 06/13/18 06/14/18 1515:00 23:00 07:00 IntakeIntake Total 980 ml 840 ml OutputOutput Total 1200 ml 1200 ml BalanceBalance -220 ml -360 ml Results Result Diagram: 06/11/18 1524 06/11/18 1524 Medications Medications Current Medications IV Flush (NS 3 ml) 3 ml PER PROTOCOL IV ; Start 06/10/18 at 17:00 Acetaminophen (Tylenol Tab) 650 mg Q6H PRN PO PAIN LEVEL 1-3 OR FEVER; Start 06/10/18 at 17:00 Acetaminophen/ Hydrocodone Bitart ([place] (5/325)) 1 tab Q6H PRN PO PAIN LEVEL 4-6; Start 06/10/18 at 17:00 Heparin Sodium (Porcine) (Heparin (5000 Units/1ml)) 5,000 unit Q8 SC ; Start 06/10/18 at 22:00 Morphine Sulfate (morphine) 6 mg Q4H PRN PO SEVERE PAIN LEVEL 7-10; Start 06/12/18 at 14:30 Trimethoprim/ Sulfamethoxazole (Bactrim (Ds)) 1 tab BID NGT Last administered on 06/14/18at 08:36; Admin Dose 1 TAB; Start 06/12/18 at 21:00 Silver Sulfadiazine (Thermazene 1% 25 Gm) 1 applic BID TOP Last administered on 06/14/18at 08:40; Admin Dose 1 APPLIC; Start 06/12/18 at 21:00 Lisinopril (Zestril) 10 mg DAILY PO Last administered on 06/14/18at 08:37; Admin Dose 10 MG; Start 06/14/18 at 09:00 VTE Prophylaxis Risk score (from Nsg)>0 risk: 4 SCD applied (from Nsg): No SCD contraindication: other Lines/Catheters IV Catheter Type: Peace in Place: No Assessment/Plan Hospital Course subjective patient continues to be compliant with certain medications, but doesn't want lab draws Objective Physical exam General: Patient is laying in bed and answers questions appropriately Mentation: Patient is alert and oriented 4, Head: Normocephalic atraumatic Eyes: EOMI, pupils reactive to light Neck: Supple, nontender, midline Respiratory: Clear to auscultation bilaterally Cardiovascular: regular rate, no obvious murmurs Gastrointestinal: non-tender to palpation, bowel sounds heard. Neurological: Moves all extremities spontaneously Genitourinary: Very large left-sided inguinal hernia Skin: Bilateral lower extremity erythema, left side worse than right. Left side has some mild pus however no fluctuant areas of confirmed abscess. Assessment and plan Bilateral cellulitis, left worse than right -on bactrim now -ID consulted -CT of the lower extremity or MRI refused per patient -Venous ultrasound to rule out DVT, negative -Echocardiogram noted Mood disorder -Patient is paranoid, questionable schizophrenia, lipsmacking movements -Not suicidal, very pleasant, will consult [facility] psych nurse practitioner for medication management, however patient refused to be seen Hypertension -Controlled now, monitor Anemia -No apparent source of bleeding, may be chronic -likely iron deficient -IV iron for now Large left-sided inguinal hernia -Asymptomatic, patient had for 10 years, follow-up outpatient. Disposition -antibiotics, ID recs -patient refuses lab draws and imaging -patient wants placement, CM aware LITZY MARCIAL Jun 14, 2018 12:15
--- NOTE | 2018-06-14 12:50 | CONS ---
Date/Time of Note Date/Time of Note DATE: 06/14/18 TIME: 12:47 Assessment/Plan Assessment/Plan Result Diagram: 06/11/18 1524 06/11/18 1524 Consultation Date/Type/Reason Admit Date/Time Jun 10, 2018 at 16:55 Initial Consult Date SUBJECTIVE: PT is awake, alert, no fevers. VS: stable T: 98.8 LABS: reviewed. MICRO: Left lower extremity drainage culture growing Proteus vulgaris, susceptible to Bactrim. Antimicrobials: Bactrim DS Physical examination: GEN: Well-developed well-nourished elderly man who is alert in no distress. HENT: Head atraumatic normocephalic sclera nonicteric. Neck is supple. Pulm: Chest rise symmetrical. Breath sounds clear. Heart: S1-S2. ABDOMEN: soft bowel sounds present. Extremities with bilateral lower extremities chronic changes. Left lower extremity cellulitis with some scaly dry skin no drainage presently Assessment: 1. Acute on chronic bilateral lower extremity cellulitis, left more than right 2. Systemic inflammatory response syndrome with leukocytosis on admission 3. Homelessness 4. Anemia Plan: Patient remained stable. Continue same abx, topical Silvadene, monitor renal f-n Exam/Review of Systems Vital Signs Vitals Vital Signs Date Temp Pulse Resp B/P (MAP) Pulse Ox O2 O2 Flow FiO2 Time Delivery Rate 06/14/18 98.8 69 18 132/65 94 Room Air 07:34 (87) Intake and Output 06/13/18 06/13/18 06/14/18 1515:00 23:00 07:00 IntakeIntake Total 980 ml 840 ml OutputOutput Total 1200 ml 1200 ml BalanceBalance -220 ml -360 ml Medications Medications Current Medications IV Flush (NS 3 ml) 3 ml PER PROTOCOL IV ; Start 06/10/18 at 17:00 Acetaminophen (Tylenol Tab) 650 mg Q6H PRN PO PAIN LEVEL 1-3 OR FEVER; Start 06/10/18 at 17:00 Acetaminophen/ Hydrocodone Bitart ([place] (5/325)) 1 tab Q6H PRN PO PAIN LEVEL 4-6; Start 06/10/18 at 17:00 Heparin Sodium (Porcine) (Heparin (5000 Units/1ml)) 5,000 unit Q8 SC ; Start 06/10/18 at 22:00 Morphine Sulfate (morphine) 6 mg Q4H PRN PO SEVERE PAIN LEVEL 7-10; Start 06/12/18 at 14:30 Trimethoprim/ Sulfamethoxazole (Bactrim (Ds)) 1 tab BID NGT Last administered on 06/14/18at 08:36; Admin Dose 1 TAB; Start 06/12/18 at 21:00 Silver Sulfadiazine (Thermazene 1% 25 Gm) 1 applic BID TOP Last administered on 06/14/18at 08:40; Admin Dose 1 APPLIC; Start 06/12/18 at 21:00 Lisinopril (Zestril) 10 mg DAILY PO Last administered on 06/14/18at 08:37; Admin Dose 10 MG; Start 06/14/18 at 09:00 TRIXIE THACKER Jun 14, 2018 12:50
[2018-06-14 14:13] VITALS: BP 125/58; RESP 16
[2018-06-14 19:55] VITALS: BP 121/60; PULSE 18; PULSE 80; RESP 18
[2018-06-15] MEDS: HEPARIN 5,000 UNIT/1 ML VIAL SC SCH ×3 (05:13→21:36)
[2018-06-15 08:00] VITALS: BP 115/56; PULSE 82; RESP 18
--- NOTE | 2018-06-15 08:59 | PN ---
Date/Time of Note Date/Time of Note DATE: 06/15/18 TIME: 08:59 Assessment/Plan VTE Prophylaxis Risk score (from Ns)>0 risk: 4 SCD applied (from Ns): No SCD contraindicated: patient refusal Pharmacological prophylaxis: heparin Pharm contraindication: patient refusal Lines/Catheters IV [facility]from [facility] Urinary Cath still in place: No Assessment/Plan Assessment/Plan 1. Bilateral cellulitis - Skin appears flaky and more associated to venous stasis changes. Erythema improving bilaterally but still complaining of discomfort. When distracted, not complaining of pain with palpation shins bilaterally - ID on board and appreciate recommendations. Continue on PO Bactrim - Imaging studies offered but patient refusing. - Venous ultrasound to rule out DVT, negative - Echocardiogram noted 2. Mood disorder - Patient is paranoid, questionable schizophrenia, with lip smacking movements - Not suicidal, very pleasant as long as not forced to comply. Refusing psych consultation 3. Hypertension - Stable 4. Anemia - No apparent source of bleeding, may be chronic - likely iron deficient - refusing blood draws 5. Large left-sided inguinal hernia - Asymptomatic, patient had for 10 years, follow-up outpatient. 6. Disposition - Continue current treatment for cellulitis of lower extremities bilaterally - CM on board for placement Result Diagram: 06/11/18 1524 06/11/18 1524 Subjective 24 Hr Interval Summary Free Text/Dictation Patient still continues to refuse blood draws and physical therapy. Patient agreed to shower this am but complaining of left leg pain following shower. Still with delusions and paranoid thoughts. Per nursing, no lice appreciated and completed treatment. Exam/Review of Systems Vital Signs Vitals Vital Signs Date Temp Pulse Resp B/P (MAP) Pulse Ox O2 O2 Flow FiO2 Time Delivery Rate 06/15/18 98.0 82 18 115/56 93 Room Air 08:00 (75) Intake and Output 06/14/18 06/14/18 06/15/18 1515:00 23:00 07:00 IntakeIntake Total 1280 ml OutputOutput Total 800 ml BalanceBalance 480 ml Exam General: Patient is laying in bed and answers questions appropriately. flight of ideas, paranoia Mentation: Patient is alert and oriented 4, Neck: Supple Respiratory: Clear to auscultation bilaterally. no wheezing or rhonchi Cardiovascular: regular rate and rhythm, no obvious murmurs Gastrointestinal: soft, non-tender to palpation, nondistended, bowel sounds heard. no rebound or guarding Neurological: Moves all extremities spontaneously Skin: Bilateral LE dryness of skin with flaking. Mildly tender left willard to foot with palpation. Healing scabs appreciated Medications Medications Current Medications IV Flush (NS 3 ml) 3 ml PER PROTOCOL IV ; Start 06/10/18 at 17:00 Acetaminophen (Tylenol Tab) 650 mg Q6H PRN PO PAIN LEVEL 1-3 OR FEVER; Start at 17:00 Acetaminophen/ Hydrocodone Bitart ([place] (5/325)) 1 tab Q6H PRN PO PAIN LEVEL 4-6; Start 06/10/18 at 17:00 Heparin Sodium (Porcine) (Heparin (5000 Units/1ml)) 5,000 unit Q8 SC ; Start 06/10/18 at 22:00 Morphine Sulfate (morphine) 6 mg Q4H PRN PO SEVERE PAIN LEVEL 7-10; Start 06/12/18 at 14:30 Trimethoprim/ Sulfamethoxazole (Bactrim (Ds)) 1 tab BID NGT Last administered on 06/14/18at 21:04; Admin Dose 1 TAB; Start 06/12/18 at 21:00 Silver Sulfadiazine (Thermazene 1% 25 Gm) 1 applic BID TOP Last administered on 06/14/18at 08:40; Admin Dose 1 APPLIC; Start 06/12/18 at 21:00 Lisinopril (Zestril) 10 mg DAILY PO Last administered on 06/14/18at 08:37; Admin Dose 10 MG; Start 06/14/18 at 09:00 KENNETH LALA MD Jun 15, 2018 08:59
[2018-06-15] MEDS: SILVER SULFADIAZINE 1% 25 GM CR TOP SCH ×2 (09:00→21:00)
[2018-06-15] MEDS: LISINOPRIL 10 MG TAB PO SCH (09:29)
[2018-06-15] MEDS: TRIMETHOPRIM/SULFAMETHOX (DS) TAB NGT SCH ×2 (09:29→21:35)
--- NOTE | 2018-06-15 13:55 | CONS ---
Date/Time of Note Date/Time of Note DATE: 06/15/18 TIME: 13:54 Assessment/Plan Assessment/Plan Hospital Course 1205 Patient is alert, feels good, no fevers Left lower extremity drainage culture growing Proteus vulgaris, susceptible to Bactrim. Antimicrobials: Bactrim Physical examination: Well-developed well-nourished elderly man who is alert in no distress. Head atraumatic normocephalic sclera nonicteric. Neck is supple. Chest rise symmetrical. Breath sounds clear. Heart: S1-S2. Abdomen soft bowel sounds present. Extremities with bilateral lower extremities chronic changes. Left lower extremity cellulitis with some scaly dry skin no drainage Assessment: 1. Acute on chronic bilateral lower extremity cellulitis, left more than right 2. Systemic inflammatory response syndrome with leukocytosis on admission 3. Homelessness 4. Anemia Plan: Patient remained stable. Continue abx/topical Silvadene, check BUN/Cr Result Diagram: 06/11/18 1524 06/11/18 1524 Consultation Date/Type/Reason Admit Date/Time Jun 10, 2018 at 16:55 Initial Consult Date Type of Consult id Exam/Review of Systems Vital Signs Vitals Vital Signs Date Temp Pulse Resp B/P (MAP) Pulse Ox O2 O2 Flow FiO2 Time Delivery Rate 06/15/18 98.0 82 18 115/56 93 Room Air 08:00 (75) Intake and Output 06/14/18 06/14/18 06/15/18 1515:00 23:00 07:00 IntakeIntake Total 1280 ml OutputOutput Total 800 ml BalanceBalance 480 ml Medications Medications Current Medications IV Flush (NS 3 ml) 3 ml PER PROTOCOL IV ; Start 06/10/18 at 17:00 Acetaminophen (Tylenol Tab) 650 mg Q6H PRN PO PAIN LEVEL 1-3 OR FEVER; Start 06/10/18 at 17:00 Acetaminophen/ Hydrocodone Bitart ([place] (5/325)) 1 tab Q6H PRN PO PAIN LEVEL 4-6; Start 06/10/18 at 17:00 Heparin Sodium (Porcine) (Heparin (5000 Units/1ml)) 5,000 unit Q8 SC ; Start 06/10/18 at 22:00 Morphine Sulfate (morphine) 6 mg Q4H PRN PO SEVERE PAIN LEVEL 7-10; Start 06/12/18 at 14:30 Trimethoprim/ Sulfamethoxazole (Bactrim (Ds)) 1 tab BID NGT Last administered on 06/15/18at 09:29; Admin Dose 1 TAB; Start 06/12/18 at 21:00 Silver Sulfadiazine (Thermazene 1% 25 Gm) 1 applic BID TOP Last administered on 06/14/18at 08:40; Admin Dose 1 APPLIC; Start 06/12/18 at 21:00 Lisinopril (Zestril) 10 mg DAILY PO Last administered on 06/15/18at 09:29; Admin Dose 10 MG; Start 06/14/18 at 09:00 DEMOND HOWELL NP Jun 15, 2018 13:55
[2018-06-15 14:00] VITALS: BP 126/72; PULSE 78; RESP 18
[2018-06-15 20:10] VITALS: BP 113/53; PULSE 76; RESP 18
[2018-06-16 01:15] VITALS: BP 124/60; PULSE 84; RESP 18
[2018-06-16] MEDS: HEPARIN 5,000 UNIT/1 ML VIAL SC SCH ×3 (05:11→21:16)
[2018-06-16 07:33] VITALS: BP 130/66; PULSE 64; RESP 18
[2018-06-16] MEDS: TRIMETHOPRIM/SULFAMETHOX (DS) TAB NGT SCH ×2 (08:15→20:07)
[2018-06-16] MEDS: LISINOPRIL 10 MG TAB PO SCH (08:16)
[2018-06-16] MEDS: SILVER SULFADIAZINE 1% 25 GM CR TOP SCH ×2 (08:16→20:07)
--- NOTE | 2018-06-16 08:16 | PN ---
Date/Time of Note Date/Time of Note DATE: 06/16/18 TIME: 08:16 Assessment/Plan VTE Prophylaxis Risk score (from Ns)>0 risk: 5 SCD applied (from Ns): No SCD contraindicated: patient refusal Pharmacological prophylaxis: heparin Pharm contraindication: patient refusal Lines/Catheters [facility] Saline Lock Urinary Cath still in place: No Assessment/Plan Assessment/Plan 1. Bilateral cellulitis- improving - Patient appears to have chronic skin changes with dry flaky skin but no discharge or drainage appreciated to indicate active infection. - ID on board and appreciate recommendations. Continue on PO Bactrim. Cu rrently on day 7 of antibiotics - Imaging studies offered but patient refusing. - Venous ultrasound to rule out DVT, negative - Echocardiogram noted 2. Mood disorder - Patient is with paranoid delusions and questionable schizophrenia - Not suicidal, very pleasant as long as not forced to comply with medical interventions. Refusing psych consultation but will have [employer] INSTRUCTOR reattempt to see him this afternoon 3. Hypertension - Stable 4. Anemia - Appreciated at time of admission but no apparent source of bleeding, may be chronic - likely iron deficiency - refusing blood draws to monitor hgb levels 5. Large left-sided inguinal hernia - Asymptomatic, patient had for 10 years, follow-up outpatient. 6. Disposition - Patient is medically stable for discharge, however is an unsafe discharge back to the streets given homeless status and mental instability. Will have psych attempt to reevaluate patient this afternoon. Lower extremity changes most likely chronic and will need to complete a few more days of PO Bactrim. Subjective 24 Hr Interval Summary Free Text/Dictation Patient still continues with delusions and paranoia. He states his body is alive like a worm and started ranting about the [email or web address] and Movinary coming out of the [employer] anus. Attempted to redirect patient. States tolerating PO intake, having BMs, and sleeping well. Refusing lotion since states he does not like it applied to his skin. He is using the back of a plastic knife to scratch his arms and behind his right leg. Exam/Review of Systems Vital Signs Vitals Vital Signs Date Temp Pulse Resp B/P (MAP) Pulse Ox O2 O2 Flow FiO2 Time Delivery Rate 06/16/18 98.0 64 18 130/66 96 Room Air 07:33 (87) Intake and Output 06/15/18 06/15/18 06/16/18 1515:00 23:00 07:00 IntakeIntake Total 720 ml 480 ml OutputOutput Total 1000 ml 300 ml BalanceBalance -280 ml 480 ml -300 ml Exam General: Patient is laying in bed. answering questions with paranoid delusional statements Neck: Supple Respiratory: Clear to auscultation bilaterally. no wheezing or rhonchi Cardiovascular: regular rate and rhythm, no obvious murmurs Gastrointestinal: soft, non-tender to palpation, nondistended, bowel sounds heard. no rebound or guarding Neurological: Moves all extremities spontaneously Skin: Chronic skin changes on lower extremities bilaterally. Left with flaking dry skin and healing scabs. arms with thickening of skin. Medications Medications Current Medications IV Flush (NS 3 ml) 3 ml PER PROTOCOL IV ; Start 06/10/18 at 17:00 Acetaminophen (Tylenol Tab) 650 mg Q6H PRN PO PAIN LEVEL 1-3 OR FEVER; Start 06/10/18 at 17:00 Acetaminophen/ Hydrocodone Bitart ([place] (5/325)) 1 tab Q6H PRN PO PAIN LEVEL 4-6; Start 06/10/18 at 17:00 Heparin Sodium (Porcine) (Heparin (5000 Units/1ml)) 5,000 unit Q8 SC ; Start 06/10/18 at 22:00 Morphine Sulfate (morphine) 6 mg Q4H PRN PO SEVERE PAIN LEVEL 7-10; Start 06/12/18 at 14:30 Trimethoprim/ Sulfamethoxazole (Bactrim (Ds)) 1 tab BID NGT Last administered on 06/15/18at 21:35; Admin Dose 1 TAB; Start 06/12/18 at 21:00 Silver Sulfadiazine (Thermazene 1% 25 Gm) 1 applic BID TOP Last administered on 06/14/18at 08:40; Admin Dose 1 APPLIC; Start 06/12/18 at 21:00 Lisinopril (Zestril) 10 mg DAILY PO Last administered on 06/15/18at 09:29; Admin Dose 10 MG; Start 06/14/18 at 09:00 KENNETH LALA MD Jun 16, 2018 08:16
[2018-06-16 13:41] VITALS: BP 119/58; PULSE 76; RESP 18
--- NOTE | 2018-06-16 13:56 | CONS ---
Date/Time of Note Date/Time of Note DATE: 06/16/18 TIME: 13:55 Assessment/Plan Assessment/Plan Hospital Course Patient is alert, feels good, no fevers Left lower extremity drainage culture growing Proteus vulgaris, susceptible to Bactrim. Antimicrobials: Bactrim Physical examination: Well-developed well-nourished elderly man who is alert in no distress. Head atraumatic normocephalic sclera nonicteric. Neck is supple. Chest rise symmetrical. Breath sounds clear. Heart: S1-S2. Abdomen soft bowel sounds present. Extremities with bilateral lower extremities chronic changes. Left lower extremity cellulitis with some scaly dry skin no drainage Assessment: 1. Acute on chronic bilateral lower extremity cellulitis, left more than right 2. Systemic inflammatory response syndrome with leukocytosis on admission 3. Homelessness 4. Anemia Plan: Patient remained stable. Continue abx/topical Silvadene, monitor renal function closely Consultation Date/Type/Reason Admit Date/Time Jun 10, 2018 at 16:55 Initial Consult Date Type of Consult id Exam/Review of Systems Vital Signs Vitals Vital Signs Date Temp Pulse Resp B/P (MAP) Pulse Ox O2 O2 Flow FiO2 Time Delivery Rate 06/16/18 98.0 64 18 130/66 96 Room Air 07:33 (87) Intake and Output 06/15/18 06/15/18 06/16/18 1515:00 23:00 07:00 IntakeIntake Total 720 ml 480 ml OutputOutput Total 1000 ml 300 ml BalanceBalance -280 ml 480 ml -300 ml Medications Medications Current Medications IV Flush (NS 3 ml) 3 ml PER PROTOCOL IV ; Start 06/10/18 at 17:00 Acetaminophen (Tylenol Tab) 650 mg Q6H PRN PO PAIN LEVEL 1-3 OR FEVER; Start 06/10/18 at 17:00 Acetaminophen/ Hydrocodone Bitart ([place] (5/325)) 1 tab Q6H PRN PO PAIN LEVEL 4-6; Start 06/10/18 at 17:00 Heparin Sodium (Porcine) (Heparin (5000 Units/1ml)) 5,000 unit Q8 SC ; Start 06/10/18 at 22:00 Morphine Sulfate (morphine) 6 mg Q4H PRN PO SEVERE PAIN LEVEL 7-10; Start 06/12/18 at 14:30 Trimethoprim/ Sulfamethoxazole (Bactrim (Ds)) 1 tab BID NGT Last administered on 06/16/18 08:15; Admin Dose 1 TAB; Start 06/12/18 at 21:00 Silver Sulfadiazine (Thermazene 1% 25 Gm) 1 applic BID TOP Last administered on 06/16/18 08:16; Admin Dose 1 APPLIC; Start 06/12/18 at 21:00 Lisinopril (Zestril) 10 mg DAILY PO Last administered on 06/16/18 08:16; Admin Dose 10 MG; Start 06/14/18 at 09:00 DEMOND HOWELL NP Jun 16, 2018 13:56
[2018-06-16] MEDS ORDERED: clonAZEPAM 0.5 MG TAB PO ONE (15:30)
[2018-06-16 19:26] VITALS: BP 118/55; PULSE 85; RESP 20
[2018-06-17 02:00] VITALS: BP 125/58; PULSE 77; RESP 18
[2018-06-17] MEDS: HEPARIN 5,000 UNIT/1 ML VIAL SC SCH ×3 (06:00→22:00)
[2018-06-17 07:41] VITALS: BP 172/72; PULSE 83; RESP 18
--- NOTE | 2018-06-17 08:34 | PN ---
Date/Time of Note Date/Time of Note DATE: 06/17/18 TIME: 08:34 Assessment/Plan VTE Prophylaxis Risk score (from Ns)>0 risk: 5 SCD applied (from [facility] [place]): No SCD contraindicated: patient refusal Pharmacological prophylaxis: heparin Pharm contraindication: patient refusal Lines/Catheters IV C[facility] Type (from [facility] Saline Lock Urinary Cath still in place: No Assessment/Plan Assessment/Plan 1. Bilateral cellulitis- resolving - Patient has dryness to legs bilaterally and small patch on left lateral aspect of leg is healing without drainage or discharge. - ID on board and appreciate recommendations. Continue on PO Bactrim. Currently on day 8 of antibiotics. Discussed with patient need to check his renal function and blood count while on the antibiotics but refusing. States he does not have any bleeding and feels like his "body is functioning normally" so no need to draw blood - Venous ultrasound to rule out DVT, negative - Echocardiogram noted 2. Mood disorder - Patient is with paranoid delusions and questionable schizophrenia - Not suicidal, very pleasant as long as not forced to comply with medical interventions. Refusing psych evaluation - Also continues to refuse blood draws but given vitals remain stable and no signs of bleeding will continue to encourage patient to agree but unable to force on patient 3. Hypertension - Stable 4. Anemia, chronic - Unable to follow up on hemoglobin given continues to refuse blood draws but patient was given IV iron and has no noted source of bleeding or blood/melena per rectum. Patient has remained hemodynamically stable during hospitalization - likely iron deficiency 5. Large left-sided inguinal hernia - Asymptomatic, patient had for 10 years, follow-up outpatient. 6. Disposition - Patient is medically stable for discharge, however is an unsafe discharge back to the streets given homeless status and mental instability. Patient has remained hemodynamically stable with no acute changes appreciated. Results 24hrs Laboratory Tests Test 06/16/18 15:00 Urine Color YELLOW Urine Clarity CLEAR Urine pH 6.0 Urine Specific [place] 1.017 Urine Ketones NEGATIVE Urine Nitrite NEGATIVE Urine Bilirubin NEGATIVE Urine Urobilinogen NEGATIVE Urine Leukocyte Esterase NEGATIVE Urine Hemoglobin NEGATIVE Urine Glucose NEGATIVE Urine Total Protein NEGATIVE Urine Opiates Screen Negative Urine Barbiturates Negative Urine Amphetamines Screen Negative Urine Benzodiazepines Screen Negative Urine Cocaine Screen Negative Urine Cannabinoids Positive Subjective 24 Hr Interval Summary Free Text/Dictation Patient pleasant this am but still refusing all lab draws. States the 2 times he allowed draws, they were very painful. Patient denies any issues and when asked if he needed anything stated "his wallet back from [facility]". No acute overnight events. Exam/Review of Systems Vital Signs Vitals Vital Signs Date Temp Pulse Resp B/P (MAP) Pulse Ox O2 O2 Flow FiO2 Time Delivery Rate 06/17/18 98.7 83 18 172/72 95 Room Air 07:41 (105) Intake and Output 06/16/18 06/16/18 06/17/18 1414:59 22:59 06:59 IntakeIntake Total 800 ml OutputOutput Total 700 ml BalanceBalance 100 ml Exam General: Patient is laying in bed. answering questions appropriately but at times with paranoid delusions Neck: Supple Respiratory: Clear to auscultation bilaterally. no wheezing or rhonchi Cardiovascular: regular rate and rhythm, no obvious murmurs Gastrointestinal: soft, non-tender to palpation, nondistended, bowel sounds heard. no rebound or guarding Neurological: Moves all extremities spontaneously Skin: Chronic skin changes on lower extremities bilaterally. left with small patch of flaking skin and healing scabs. right leg dry with healing excoriations. arms with thickening of skin. Medications Medications Current Medications IV Flush (NS 3 ml) 3 ml PER PROTOCOL IV ; Start 06/10/18 at 17:00 Acetaminophen (Tylenol Tab) 650 mg Q6H PRN PO PAIN LEVEL 1-3 OR FEVER; Start 06/10/18 at 17:00 Acetaminophen/ Hydrocodone Bitart ([place] (5/325)) 1 tab Q6H PRN PO PAIN LEVEL 4-6; Start 06/10/18 at 17:00 Heparin Sodium (Porcine) (Heparin (5000 Units/1ml)) 5,000 unit Q8 SC ; Start 06/10/18 at 22:00 Morphine Sulfate (morphine) 6 mg Q4H PRN PO SEVERE PAIN LEVEL 7-10; Start 06/12/18 at 14:30 Trimethoprim/ Sulfamethoxazole (Bactrim (Ds)) 1 tab BID NGT Last administered on 06/16/18at 20:07; Admin Dose 1 TAB; Start 06/12/18 at 21:00 Silver Sulfadiazine (Thermazene 1% 25 Gm) 1 applic BID TOP Last administered on 06/16/18at 20:07; Admin Dose 1 APPLIC; Start 06/12/18 at 21:00 Lisinopril (Zestril) 10 mg DAILY PO Last administered on 06/16/18at 08:16; Admin Dose 10 MG; Start 06/14/18 at 09:00 KENNETH LALA MD Jun 17, 2018 08:34
[2018-06-17] MEDS: LISINOPRIL 10 MG TAB PO SCH (09:03)
[2018-06-17] MEDS: TRIMETHOPRIM/SULFAMETHOX (DS) TAB NGT SCH ×2 (09:03→21:03)
[2018-06-17] MEDS: SILVER SULFADIAZINE 1% 25 GM CR TOP SCH ×2 (09:04→21:04)
--- NOTE | 2018-06-17 13:34 | CONS ---
Date/Time of Note Date/Time of Note DATE: 06/17/18 TIME: 13:34 Assessment/Plan Assessment/Plan Hospital Course Patient is alert, feels good, no fevers Left lower extremity drainage culture growing Proteus vulgaris, susceptible to Bactrim. Antimicrobials: Bactrim Physical examination: Well-developed well-nourished elderly man who is alert in no distress. Head atraumatic normocephalic sclera nonicteric. Neck is supple. Chest rise symmetrical. Breath sounds clear. Heart: S1-S2. Abdomen soft bowel sounds present. Extremities with bilateral lower extremities chronic changes. Left lower extremity cellulitis with some scaly dry skin no drainage Assessment: 1. Acute on chronic bilateral lower extremity cellulitis, left more than right 2. Systemic inflammatory response syndrome with leukocytosis on admission 3. Homelessness 4. Anemia Plan: Patient remained stable. Continue abx/topical Silvadene, monitor renal function closely Results 24hrs Laboratory Tests Test 06/16/18 15:00 Urine Color YELLOW Urine Clarity CLEAR Urine pH 6.0 Urine Specific [place] 1.017 Urine Ketones NEGATIVE Urine Nitrite NEGATIVE Urine Bilirubin NEGATIVE Urine Urobilinogen NEGATIVE Urine Leukocyte Esterase NEGATIVE Urine Hemoglobin NEGATIVE Urine Glucose NEGATIVE Urine Total Protein NEGATIVE Urine Opiates Screen Negative Urine Barbiturates Negative Urine Amphetamines Screen Negative Urine Benzodiazepines Screen Negative Urine Cocaine Screen Negative Urine Cannabinoids Positive Consultation Date/Type/Reason Admit Date/Time Jun 10, 2018 at 16:55 Initial Consult Date Type of Consult id Exam/Review of Systems Vital Signs Vitals Vital Signs Date Temp Pulse Resp B/P (MAP) Pulse Ox O2 O2 Flow FiO2 Time Delivery Rate 06/17/18 98.7 83 18 172/72 95 Room Air 07:41 (105) Intake and Output 06/16/18 06/16/18 06/17/18 1515:00 23:00 07:00 IntakeIntake Total 800 ml OutputOutput Total 700 ml BalanceBalance 100 ml Medications Medications Current Medications IV Flush (NS 3 ml) 3 ml PER PROTOCOL IV ; Start 06/10/18 at 17:00 Acetaminophen (Tylenol Tab) 650 mg Q6H PRN PO PAIN LEVEL 1-3 OR FEVER; Start 06/10/18 at 17:00 Acetaminophen/ Hydrocodone Bitart ([place] (5/325)) 1 tab Q6H PRN PO PAIN LEVEL 4-6; Start 06/10/18 at 17:00 Heparin Sodium (Porcine) (Heparin (5000 Units/1ml)) 5,000 unit Q8 SC ; Start 06/10/18 at 22:00 Morphine Sulfate (morphine) 6 mg Q4H PRN PO SEVERE PAIN LEVEL 7-10; Start 06/12/18 at 14:30 Trimethoprim/ Sulfamethoxazole (Bactrim (Ds)) 1 tab BID NGT Last administered on 06/17/18at 09:03; Admin Dose 1 TAB; Start 06/12/18 at 21:00 Silver Sulfadiazine (Thermazene 1% 25 Gm) 1 applic BID TOP Last administered on 06/17/18at 09:04; Admin Dose 1 APPLIC; Start 06/12/18 at 21:00 Lisinopril (Zestril) 10 mg DAILY PO Last administered on 06/17/18at 09:03; Admin Dose 10 MG; Start 06/14/18 at 09:00 DEMOND HOWELL NP Jun 17, 2018 13:34
[2018-06-17 14:00] VITALS: BP 116/55; PULSE 75; RESP 16
--- NOTE | 2018-06-17 18:01 | PSY ---
Date/Time of Note Date/Time of Note DATE: 06/17/18 TIME: 17:56 Psychiatric Subjective Eval Consent Pt consented to telemedicine: No Subjective Evaluation Patient location: inpatient Chief Complaint: LEFT LEG PAIN, BIZARRE BEHAVIOR History of present illness Patient is a 78-year-old male admitted for left leg pain. Had evaluated patient a week ago but patient refused psychiatric evaluation. On a [id number] evaluation patient is still delusional goes off on tangents, cannot process information . He is still not able to formulate appropriate self-care plan, patient is in poor contact with reality. He talks to himself responding to internal stimuli. Risk and benefits of olanzapine explained patient is adamant however staff will be advised to offer medication Medical history Problems Medical Problems: (1) Bilateral lower leg cellulitis Status: Acute (2) Body lice infestation Status: Acute (3) Psychosis Status: Acute Allergies: Coded Allergies: No Known Allergy (Unverified , 06/10/18) Substance Abuse Substance abuse history: No Prior substance abuse treatmen: No Social History Marital status: other DPA/Conservatorship: No Psychiatric Objective Eval Review of Systems: Review of Systems: Not Applicable Physical Examination: Physical Examination: Not Applicable Appetite: Decreased Energy: Decreased Mental Status Examination: Eye Contact: Poor Psychomotor Activity: Slow Behavior: Suspicious Speech: Disorganized AFFECT: Anxious Mood: Anxious Though Process: Loose Thought Content: Delusions, Hallucinations Orientation: x2 Cognition: Alert Insight: Severe Judgement: Severe Attention Span: Other Laboratory Results Laboratory Tests Test 06/16/18 15:00 Urine Color YELLOW Urine Clarity CLEAR Urine pH 6.0 Urine Specific [place] 1.017 Urine Ketones NEGATIVE mg/dL Urine Nitrite NEGATIVE mg/dL Urine Bilirubin NEGATIVE mg/dL Urine Urobilinogen NEGATIVE mg/dL Urine Leukocyte Esterase NEGATIVE Darius/ul Urine Hemoglobin NEGATIVE mg/dL Urine Glucose NEGATIVE mg/dL Urine Total Protein NEGATIVE mg/dl Urine Opiates Screen Negative Urine Barbiturates Negative Urine Amphetamines Screen Negative Urine Benzodiazepines Screen Negative Urine Cocaine Screen Negative Urine Cannabinoids Positive Assessment and Plan Assessment/Diagnosis 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
[2018-06-17 19:50] VITALS: BP 131/56; PULSE 86; RESP 20
[2018-06-17] MEDS: OLANZAPINE (ODT) 5 MG TAB ODT SCH (21:03)
[2018-06-18 01:53] VITALS: BP 128/60; PULSE 80; RESP 20
[2018-06-18] MEDS: HEPARIN 5,000 UNIT/1 ML VIAL SC SCH ×3 (06:00→21:27)
[2018-06-18 08:05] VITALS: BP 139/62; PULSE 65; RESP 18
[2018-06-18] MEDS: OLANZAPINE (ODT) 5 MG TAB ODT SCH ×2 (08:12→21:27)
[2018-06-18] MEDS: TRIMETHOPRIM/SULFAMETHOX (DS) TAB NGT SCH ×2 (08:12→21:27)
[2018-06-18] MEDS: SILVER SULFADIAZINE 1% 25 GM CR TOP SCH ×2 (08:12→21:00)
[2018-06-18] MEDS: LISINOPRIL 10 MG TAB PO SCH (08:12)
--- NOTE | 2018-06-18 12:02 | CONS ---
Date/Time of Note Date/Time of Note DATE: 06/18/18 TIME: 12:02 Assessment/Plan Assessment/Plan Hospital Course No acute changes, looks comfortable Left lower extremity drainage culture growing Proteus vulgaris, susceptible to Bactrim. Antimicrobials: Bactrim Physical examination: Well-developed well-nourished elderly man who is alert in no distress. Head atraumatic normocephalic sclera nonicteric. Neck is supple. Chest rise symmetrical. Breath sounds clear. Heart: S1-S2. Abdomen soft bowel sounds present. Extremities with bilateral lower extremities chronic changes. Left lower extremity cellulitis with some scaly dry skin no drainage Assessment: 1. Acute on chronic bilateral lower extremity cellulitis, left more than right 2. Systemic inflammatory response syndrome with leukocytosis on admission 3. Homelessness 4. Anemia Plan: Patient remained stable. Continue abx/topical Silvadene, monitor renal function closely Consultation Date/Type/Reason Admit Date/Time Jun 10, 2018 at 16:55 Initial Consult Date Type of Consult id Exam/Review of Systems Vital Signs Vitals Vital Signs Date Temp Pulse Resp B/P (MAP) Pulse Ox O2 O2 Flow FiO2 Time Delivery Rate 06/18/18 97.8 65 18 139/62 96 08:05 (87) 06/17/18 Room Air 14:00 Intake and Output 06/17/18 06/17/18 06/18/18 1515:00 23:00 07:00 IntakeIntake Total 900 ml 350 ml OutputOutput Total 800 ml BalanceBalance 100 ml 350 ml Medications Medications Current Medications IV Flush (NS 3 ml) 3 ml PER PROTOCOL IV ; Start 06/10/18 at 17:00 Acetaminophen (Tylenol Tab) 650 mg Q6H PRN PO PAIN LEVEL 1-3 OR FEVER; Start 06/10/18 at 17:00 Acetaminophen/ Hydrocodone Bitart ([place] (5/325)) 1 tab Q6H PRN PO PAIN LEVEL 4-6; Start 06/10/18 at 17:00 Heparin Sodium (Porcine) (Heparin (5000 Units/1ml)) 5,000 unit Q8 SC ; Start 06/10/18 at 22:00 Morphine Sulfate (morphine) 6 mg Q4H PRN PO SEVERE PAIN LEVEL 7-10; Start 06/12/18 at 14:30 Trimethoprim/ Sulfamethoxazole (Bactrim (Ds)) 1 tab BID NGT Last administered on 06/18/18 08:12; Admin Dose 1 TAB; Start 06/12/18 at 21:00 Silver Sulfadiazine (Thermazene 1% 25 Gm) 1 applic BID TOP Last administered on 06/18/18 08:12; Admin Dose 1 APPLIC; Start 06/12/18 at 21:00 Lisinopril (Zestril) 10 mg DAILY PO Last administered on 06/18/18 08:12; Admin Dose 10 MG; Start 06/14/18 at 09:00 Olanzapine (Zyprexa Zydis) 5 mg BID ODT Last administered on 06/18/18 08:12; Admin Dose 5 MG; Start 06/17/18 at 21:00 DEMOND HOWELL NP Jun 18, 2018 12:02
--- NOTE | 2018-06-18 13:57 | PN ---
Date/Time of Note Date/Time of Note DATE: 06/18/18 TIME: 13:47 Assessment/Plan VTE Prophylaxis Risk score (from Ns)>0 risk: 3 SCD applied (from Ns): No SCD contraindicated: patient refusal Pharmacological prophylaxis: heparin Pharm contraindication: patient refusal Lines/Catheters [facility] ([facility] no iv site Urinary Cath still in place: No Assessment/Plan Assessment/Plan 1. Bilateral cellulitis- resolving - Patient lower extremities remain stable and no new open areas appreciated or discharge/drainage from previous area - Wound culture results noted and ID on board and appreciate recommendations. Continue on PO Bactrim. Currently on day 9 of antibiotics. - Venous ultrasound to rule out DVT, negative - Echocardiogram noted 2. Mood disorder - Patient is with paranoid delusions and questionable schizophrenia - Not suicidal, very pleasant as long as not forced to comply with medical interventions. - Psych evaluation appreciated and started on Zyprexa BID 3. Hypertension - Stable 4. Anemia, chronic - patient continues to refuse blood draws since he believes we are putting poison into his veins rather than withdrawing blood - likely iron deficiency - given IV iron and started on PO supplements 5. Large left-sided inguinal hernia - Asymptomatic, patient had for 10 years, follow-up outpatient. 6. Disposition - Started on Zyprexa per psych recommendations. Once patient more stable mentally, will transition to SNF. Patient remains medically stable but is unsafe for discharge back to streets given persistent delusions and paranoia. Subjective 24 Hr Interval Summary Free Text/Dictation Patient resting comfortable and in no acute distress. No acute overnight events. Exam/Review of Systems Vital Signs Vitals Vital Signs Date Temp Pulse Resp B/P (MAP) Pulse Ox O2 O2 Flow FiO2 Time Delivery Rate 06/18/18 97.8 65 18 139/62 96 08:05 (87) 06/17/18 Room Air 14:00 Intake and Output 06/17/18 06/17/18 06/18/18 1515:00 23:00 07:00 IntakeIntake Total 900 ml 350 ml OutputOutput Total 800 ml BalanceBalance 100 ml 350 ml Exam General: Patient is laying in bed. no acute distress Respiratory: Clear to auscultation bilaterally. no wheezing or rhonchi Cardiovascular: regular rate and rhythm, no obvious murmurs Gastrointestinal: soft, non-tender to palpation, nondistended, bowel sounds heard. no rebound or guarding Neurological: Moves all extremities spontaneously Skin: Chronic skin changes on lower extremities bilaterally consistent with yousuf ous stasis changes. left calf with small patch of flaking skin and healing scabs. right leg dry with healing excoriations. arms with thickening of skin. Medications Medications Current Medications IV Flush (NS 3 ml) 3 ml PER PROTOCOL IV ; Start 06/10/18 at 17:00 Acetaminophen (Tylenol Tab) 650 mg Q6H PRN PO PAIN LEVEL 1-3 OR FEVER; Start 06/10/18 at 17:00 Acetaminophen/ Hydrocodone Bitart ([place] (5/325)) 1 tab Q6H PRN PO PAIN LEVEL 4-6; Start 06/10/18 at 17:00 Heparin Sodium (Porcine) (Heparin (5000 Units/1ml)) 5,000 unit Q8 SC ; Start 06/10/18 at 22:00 Morphine Sulfate (morphine) 6 mg Q4H PRN PO SEVERE PAIN LEVEL 7-10; Start 06/12/18 at 14:30 Trimethoprim/ Sulfamethoxazole (Bactrim (Ds)) 1 tab BID NGT Last administered on 06/18/18 08:12; Admin Dose 1 TAB; Start 06/12/18 at 21:00 Silver Sulfadiazine (Thermazene 1% 25 Gm) 1 applic BID TOP Last administered on 06/18/18 08:12; Admin Dose 1 APPLIC; Start 06/12/18 at 21:00 Lisinopril (Zestril) 10 mg DAILY PO Last administered on 06/18/18 08:12; Admin Dose 10 MG; Start 06/14/18 at 09:00 Olanzapine (Zyprexa Zydis) 5 mg BID ODT Last administered on 06/18/18 08:12; Admin Dose 5 MG; Start 06/17/18 at 21:00 KENNETH LALA MD Jun 18, 2018 13:57
[2018-06-18 14:58] VITALS: BP 112/55; PULSE 73; RESP 17
[2018-06-18 21:17] VITALS: BP 106/54; PULSE 75; RESP 18
[2018-06-19 02:00] VITALS: BP 118/60; PULSE 78; RESP 18
[2018-06-19] MEDS: HEPARIN 5,000 UNIT/1 ML VIAL SC SCH ×3 (05:18→22:00)
[2018-06-19 08:00] VITALS: BP 121/57; PULSE 67; RESP 20
--- NOTE | 2018-06-19 08:00 | PN ---
Date/Time of Note Date/Time of Note DATE: 06/19/18 TIME: 08:00 Assessment/Plan VTE Prophylaxis Risk score (from Ns)>0 risk: 3 SCD applied (from Ns): No SCD contraindicated: patient refusal Pharmacological prophylaxis: NA/contraindicated Pharm contraindication: patient refusal Lines/Catheters [facility] ([facility]): no iv site Urinary Cath still in place: No Assessment/Plan Assessment/Plan 1. Bilateral cellulitis- resolving - No new open areas or worsening erythema appreciated - Wound culture results noted and ID on board and appreciate recommendations. Continue on PO Bactrim. Currently on day 10 of antibiotics. - Venous ultrasound to rule out DVT, negative - Echocardiogram noted 2. Great right toe pain - Pt requesting podiatry consultation. Offered antibiotic ointment but refused any intervention until seen by a "professional" 3. Mood disorder - Patient is with paranoid delusions and questionable schizophrenia - Not suicidal, very pleasant as long as not forced to comply with medical inte rventions. - Psych evaluation appreciated and continue on Zyprexa 4. Hypertension - Stable 5. Anemia, chronic - patient continues to refuse blood draws since he believes we are putting poison into his veins rather than withdrawing blood - likely iron deficiency - given IV iron and started on PO supplements 6. Large left-sided inguinal hernia - Asymptomatic, patient had for 10 years, follow-up outpatient. 7. Disposition - Patient remains more calm but still refusing blood draws due to feeling as if we are trying to poison him instead Subjective 24 Hr Interval Summary Free Text/Dictation Patient refusing blood draws again this am. 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 No acute overnight events. Exam/Review of Systems Vital Signs Vitals Vital Signs Date Temp Pulse Resp B/P (MAP) Pulse Ox O2 O2 Flow FiO2 Time Delivery Rate 06/19/18 98.3 78 18 118/60 95 Room Air 02:00 (79) Intake and Output 06/18/18 06/18/18 06/19/18 1414:59 22:59 06:59 IntakeIntake Total 550 ml 500 ml OutputOutput Total 300 ml BalanceBalance 250 ml 500 ml Exam General: Patient is laying in bed. no acute distress Respiratory: Clear to auscultation bilaterally. no wheezing or rhonchi Cardiovascular: regular rate and rhythm, no obvious murmurs Gastrointestinal: soft, non-tender to palpation, nondistended, bowel sounds heard. no rebound or guarding Neurological: Moves all extremities spontaneously Skin: Chronic skin changes on lower extremities bilaterally consistent with venous stasis changes. left calf with small patch of flaking skin and healing scabs. right leg dry with healing excoriations. arms with thickening of skin. right great toe with dried blood and disfiguration of nail Medications Medications Current Medications IV Flush (NS 3 ml) 3 ml PER PROTOCOL IV ; Start 06/10/18 at 17:00 Acetaminophen (Tylenol Tab) 650 mg Q6H PRN PO PAIN LEVEL 1-3 OR FEVER; Start at 17:00 Acetaminophen/ Hydrocodone Bitart ([place] (5/325)) 1 tab Q6H PRN PO PAIN LEVEL 4-6; Start 06/10/18 at 17:00 Heparin Sodium (Porcine) (Heparin (5000 Units/1ml)) 5,000 unit Q8 SC ; Start 06/10/18 at 22:00 Morphine Sulfate (morphine) 6 mg Q4H PRN PO SEVERE PAIN LEVEL 7-10; Start 06/12/18 at 14:30 Trimethoprim/ Sulfamethoxazole (Bactrim (Ds)) 1 tab BID NGT Last administered on 06/18/18at 21:27; Admin Dose 1 TAB; Start 06/12/18 at 21:00 Silver Sulfadiazine (Thermazene 1% 25 Gm) 1 applic BID TOP Last administered on 06/18/18at 08:12; Admin Dose 1 APPLIC; Start 06/12/18 at 21:00 Lisinopril (Zestril) 10 mg DAILY PO Last administered on 06/18/18at 08:12; Admin Dose 10 MG; Start 06/14/18 at 09:00 Olanzapine (Zyprexa Zydis) 5 mg BID ODT Last administered on 06/18/18at 21:27; Admin Dose 5 MG; Start 06/17/18 at 21:00 Ferrous Sulfate (Ferrous Sulfate (Ec)) 325 mg DAILY PO ; Start 06/19/18 at 09:00 KENNETH LALA MD Jun 19, 2018 08:00
[2018-06-19] MEDS: SILVER SULFADIAZINE 1% 25 GM CR TOP SCH ×2 (09:07→20:56)
[2018-06-19] MEDS: OLANZAPINE (ODT) 5 MG TAB ODT SCH ×2 (09:07→20:51)
[2018-06-19] MEDS: TRIMETHOPRIM/SULFAMETHOX (DS) TAB NGT SCH ×2 (09:07→20:51)
[2018-06-19] MEDS: FERROUS SULFATE (EC) 325 MG TAB PO SCH (09:08)
[2018-06-19] MEDS: LISINOPRIL 10 MG TAB PO SCH (09:08)
[2018-06-19 14:00] VITALS: BP 122/45; PULSE 76; RESP 18
--- NOTE | 2018-06-19 15:05 | CONS ---
Date/Time of Note Date/Time of Note DATE: 06/19/18 TIME: 15:04 Assessment/Plan Assessment/Plan Hospital Course No acute changes, alert, looks comfortable Left lower extremity drainage culture growing Proteus vulgaris, susceptible to Bactrim. Antimicrobials: Bactrim Physical examination: Well-developed well-nourished elderly man who is alert in no distress. Head atraumatic normocephalic sclera nonicteric. Neck is supple. Chest rise symmetrical. Breath sounds clear. Heart: S1-S2. Abdomen soft bowel sounds present. Extremities with bilateral lower extremities chronic changes. Left lower extremity cellulitis with some scaly dry skin no drainage Assessment: 1. Acute on chronic bilateral lower extremity cellulitis, left more than right==> improved 2. Systemic inflammatory response syndrome with leukocytosis on admission 3. Homelessness 4. Anemia Plan: Patient remained stable. Extremities look much better, continue ab x/topical Silvadene Consultation Date/Type/Reason Admit Date/Time Jun 10, 2018 at 16:55 Initial Consult Date Type of Consult id Exam/Review of Systems Vital Signs Vitals Vital Signs Date Temp Pulse Resp B/P (MAP) Pulse Ox O2 O2 Flow FiO2 Time Delivery Rate 06/19/18 98.1 67 20 121/57 96 Room Air 08:00 (78) Intake and Output 06/18/18 06/18/18 06/19/18 1515:00 23:00 07:00 IntakeIntake Total 550 ml 500 ml OutputOutput Total 300 ml BalanceBalance 250 ml 500 ml Medications Medications Current Medications IV Flush (NS 3 ml) 3 ml PER PROTOCOL IV ; Start 06/10/18 at 17:00 Acetaminophen (Tylenol Tab) 650 mg Q6H PRN PO PAIN LEVEL 1-3 OR FEVER; Start 06/10/18 at 17:00 Acetaminophen/ Hydrocodone Bitart ([place] (5/325)) 1 tab Q6H PRN PO PAIN LEVEL 4-6; Start 06/10/18 at 17:00 Heparin Sodium (Porcine) (Heparin (5000 Units/1ml)) 5,000 unit Q8 SC ; Start 06/10/18 at 22:00 Morphine Sulfate (morphine) 6 mg Q4H PRN PO SEVERE PAIN LEVEL 7-10; Start 06/12/18 at 14:30 Trimethoprim/ Sulfamethoxazole (Bactrim (Ds)) 1 tab BID NGT Last administered on 06/19/18 09:07; Admin Dose 1 TAB; Start 06/12/18 at 21:00 Silver Sulfadiazine (Thermazene 1% 25 Gm) 1 applic BID TOP Last administered on 06/19/18 09:07; Admin Dose 1 APPLIC; Start 06/12/18 at 21:00 Lisinopril (Zestril) 10 mg DAILY PO Last administered on 06/19/18 09:08; Admin Dose 10 MG; Start 06/14/18 at 09:00 Olanzapine (Zyprexa Zydis) 5 mg BID ODT Last administered on 06/19/18 09:07; Admin Dose 5 MG; Start 06/17/18 at 21:00 Ferrous Sulfate (Ferrous Sulfate (Ec)) 325 mg DAILY PO Last administered on 06/19/18 09:08; Admin Dose 325 MG; Start 06/19/18 at 09:00 DEMOND HOWELL NP Jun 19, 2018 15:05
[2018-06-19 19:51] VITALS: BP 119/52; PULSE 81; RESP 18
[2018-06-19] MEDS: CLOTRIMAZOLE 1% 30 GM CR TOP SCH (20:54)
[2018-06-19] MEDS: NEOMYC/POLYMYX/BACIT 30 GM OINT TOP SCH (20:55)
--- NOTE | 2018-06-19 23:51 | CONS ---
DATE OF ADMISSION: 06/10/2018 DATE OF CONSULTATION: CHIEF COMPLAINT: Pain, right foot. HISTORY OF PRESENT ILLNESS: This is a 78-year-old gentleman who was admitted for cellulitis of bilat eral lower extremities which is improving, but has pain on the right hallux and asked to evaluate. PAST MEDICAL HISTORY: Hypertension, anemia, left-sided inguinal hernia, and mood disorder. PAST SURGICAL HISTORY: Status post appendectomy, tonsillectomy, and left inguinal hernia repair. FAMILY HISTORY: Noncontributory. SOCIAL HISTORY: The patient is homeless, daily smoker. Denies illicit drug use. ALLERGIES: NONE. MEDICATIONS: Bactrim. PHYSICAL EXAMINATION: VITAL SIGNS: Temperature 98.4, pulse is 76, respiratory rate is 18, blood pressure is 122/45, pulse ox is 95% on room air. GENERAL: The patient is alert and oriented x4 in no distress. HEAD: Normocephalic. NECK: Trachea is midline. CHEST: Regular respiration. EXTREMITIES: The patient is with moderate edema in bilateral lower extremity, cellulitis appears to be resolving, epidermolysis of skin, right hallux nail with dried sanguineous exudate. There is a re sidual nail plate or a cutaneous horn on the medial right hallux, nails dystrophic. Tinea present, s kin subcutaneous atrophy in bilateral lower extremity. No pressure sores noted. There is a dry esch ar to the left lower extremity, 2+ DP and PT pulses bilaterally. Cellulitis appears to be resolving. LABORATORIES: WBC 10.3, hemoglobin 7.5, hematocrit 24, platelets 351, left leg culture Proteus vulga ris. Venous ultrasound is negative for deep vein thrombosis. ASSESSMENT: 1. Bilateral lower extremity cellulitis. 2. Onychocryptosis, right hallux with contusion. 3. Homeless. 4. Anemia. 5. Tinea. PLAN: The patient was seen and evaluated. History was reviewed. Skin care recommendations were giv en. To initiate topical antifungal treatment and discussed use of a triple antibiotic. If pain pers ists, can perform a nail avulsion of the residual nail to the right great toe if the patient's pain p ersists and he is amenable. Dictated By: ISRA WHITE/SALVADOR Conf#: [id number] DID#: [id number] CC: LITZY MARCIAL MD; KENNETH LALA MD;*[facility]*
[2018-06-20 01:55] VITALS: BP 122/60; PULSE 78; RESP 18
[2018-06-20] MEDS: HEPARIN 5,000 UNIT/1 ML VIAL SC SCH (05:40)
[2018-06-20 07:52] VITALS: BP 119/60; PULSE 78; RESP 18
--- NOTE | 2018-06-20 08:30 | PN ---
Date/Time of Note Date/Time of Note DATE: 06/20/18 TIME: 08:30 Assessment/Plan VTE Prophylaxis Risk score (from Nsg)>0 risk: 3 SCD applied (from Nsg): No SCD contraindicated: low risk/ambulating Pharmacological prophylaxis: NA/contraindicated Pharm contraindication: low risk/ambulating Lines/Catheters IV Catheter Type (from Nrsg): no iv site Urinary Cath still in place: No Assessment/Plan Assessment/Plan 1. Bilateral cellulitis- resolved - No erythema appreciated and denies any pain. Able to ambulate without any issues - Continue local care to area - Wound culture results noted and ID on board and appreciate recommendations. Continue on PO Bactrim. Currently on day 11 of antibiotics. - Venous ultrasound to rule out DVT, negative - Echocardiogram noted 2. Onychocryptosis, right hallux with contusion. - Podiatry on board and appreciate consultation. will continue with local wound care and topical antifungal/antibiotics. At this time patient does not think he needs nail avulsion at this time 3. Mood disorder - More pleasant this am. Still refusing blood draws and heparin but taking PO medications - Patient is with paranoid delusions and questionable schizophrenia - Psych evaluation appreciated and continue on Zyprexa. will adjust dose as needed 4. Hypertension - Stable 5. Anemia, chronic - likely iron deficiency - Given IV iron and transitioned to PO. Refusing at times 6. Large left-sided inguinal hernia - Asymptomatic, patient had for 10 years, follow-up outpatient. 7. Disposition - Lower extremities improving. Patient more pleasant this am on new regime but due to underlying psych issues is not safe to discharge back to streets. Would benefit from continued care at [facility] Subjective 24 Hr Interval Summary Free Text/Dictation Patient very pleasant this am and states his left leg is doing better since able to ambulate without any pain. Seen by Podiatry yesterday and okay with plan of care for right toe. No acute overnight events. Exam/Review of Systems Vital Signs Vitals Vital Signs Date Temp Pulse Resp B/P (MAP) Pulse Ox O2 O2 Flow FiO2 Time Delivery Rate 06/20/18 98.0 78 18 119/60 94 Room Air 07:52 (79) Intake and Output 06/19/18 06/19/18 06/20/18 1515:00 23:00 07:00 IntakeIntake Total 360 ml 880 ml OutputOutput Total 200 ml 1600 ml BalanceBalance 160 ml -720 ml Exam General: Patient is laying in bed. no acute distress. pleasant and answering questions appropriately Respiratory: Clear to auscultation bilaterally. no wheezing or rhonchi Cardiovascular: regular rate and rhythm, no obvious murmurs Gastrointestinal: soft, non-tender to palpation, nondistended, bowel sounds heard. no rebound or guarding Neurological: Moves all extremities spontaneously Skin: Chronic skin changes on lower extremities. dryness improving. left calf with small patch of flaking skin and healing scabs. arms with thickening of skin. right great toe with bandage in place, no discharge or drainage Medications Medications Current Medications IV Flush (NS 3 ml) 3 ml PER PROTOCOL IV ; Start 06/10/18 at 17:00 Acetaminophen (Tylenol Tab) 650 mg Q6H PRN PO PAIN LEVEL 1-3 OR FEVER; Start 06/10/18 at 17:00 Acetaminophen/ Hydrocodone Bitart ([place] (5/325)) 1 tab Q6H PRN PO PAIN LEVEL 4-6; Start 06/10/18 at 17:00 Heparin Sodium (Porcine) (Heparin (5000 Units/1ml)) 5,000 unit Q8 SC ; Start 06/10/18 at 22:00 Morphine Sulfate (morphine) 6 mg Q4H PRN PO SEVERE PAIN LEVEL 7-10; Start 06/12/18 at 14:30 Trimethoprim/ Sulfamethoxazole (Bactrim (Ds)) 1 tab BID NGT Last administered on 06/19/18at 20:51; Admin Dose 1 TAB; Start 06/12/18 at 21:00 Silver Sulfadiazine (Thermazene 1% 25 Gm) 1 applic BID TOP Last administered on 06/19/18at 20:56; Admin Dose 1 APPLIC; Start 06/12/18 at 21:00 Lisinopril (Zestril) 10 mg DAILY PO Last administered on 06/19/18 09:08; Admin Dose 10 MG; Start 06/14/18 at 09:00 Olanzapine (Zyprexa Zydis) 5 mg BID ODT Last administered on 06/19/18 20:51; Admin Dose 5 MG; Start 06/17/18 at 21:00 Ferrous Sulfate (Ferrous Sulfate (Ec)) 325 mg DAILY PO Last administered on 06/19/18 09:08; Admin Dose 325 MG; Start 06/19/18 at 09:00 Clotrimazole (Lotrimin Cr) 1 applic BID TOP Last administered on 06/19/18at 20:54; Admin Dose 1 APPLIC; Start 06/19/18 at 21:00 Neomycin/ Polymyxin/ Bacitracin (Neosporin Topical Oint) 1 applic BID TOP Last administered on 06/19/18at 20:55; Admin Dose 1 APPLIC; Start 06/19/18 at 21:00 KENNETH LALA MD Jun 20, 2018 08:30
[2018-06-20] MEDS: SILVER SULFADIAZINE 1% 25 GM CR TOP SCH ×4 (09:00→21:00)
[2018-06-20] MEDS: CLOTRIMAZOLE 1% 30 GM CR TOP SCH ×4 (09:00→21:00)
[2018-06-20] MEDS: NEOMYC/POLYMYX/BACIT 30 GM OINT TOP SCH ×4 (09:00→21:00)
[2018-06-20] MEDS: FERROUS SULFATE (EC) 325 MG TAB PO SCH (09:44)
[2018-06-20] MEDS: TRIMETHOPRIM/SULFAMETHOX (DS) TAB NGT SCH ×2 (09:44→20:18)
[2018-06-20] MEDS: OLANZAPINE (ODT) 5 MG TAB ODT SCH ×2 (09:45→20:22)
[2018-06-20] MEDS: LISINOPRIL 10 MG TAB PO SCH (09:45)
[2018-06-20 14:00] VITALS: BP 104/56; PULSE 78; RESP 18
--- NOTE | 2018-06-20 14:10 | CONS ---
Date/Time of Note Date/Time of Note DATE: 06/20/18 TIME: 14:09 Assessment/Plan Assessment/Plan Results 24hrs Laboratory Tests Test 06/20/18 09:40 Lab Scanned Report REFERENCE LAB Consultation Date/Type/Reason Admit Date/Time Jun 10, 2018 at 16:55 Initial Consult Date SUBJECTIVE: PT is awake, alert, no fevers. VS: stable T: 98.0 LABS: reviewed. none today MICRO: Left lower extremity drainage culture growing Proteus vulgaris, susceptible to Bactrim. Antimicrobials: Bactrim DS Physical examination: GEN: Well-developed well-nourished elderly man who is alert in no distress. HENT: Head atraumatic normocephalic sclera nonicteric. Neck is supple. Pulm: Chest rise symmetrical. Breath sounds clear. Heart: S1-S2. ABDOMEN: soft bowel sounds present. Extremities with bilateral lower extremities chronic changes. Left lower extremity cellulitis with some scaly dry skin no drainage presently Assessment: 1. Acute on chronic bilateral lower extremity cellulitis, left more than right 2. Systemic inflammatory response syndrome with leukocytosis on admission 3. Homelessness 4. Anemia Plan: Patient remained stable. Continue same abx, topical Silvadene, monitor renal f-n Exam/Review of Systems Vital Signs Vitals Vital Signs Date Temp Pulse Resp B/P (MAP) Pulse Ox O2 O2 Flow FiO2 Time Delivery Rate 06/20/18 98.0 78 18 119/60 94 Room Air 07:52 (79) Intake and Output 06/19/18 06/19/18 06/20/18 1515:00 23:00 07:00 IntakeIntake Total 360 ml 880 ml OutputOutput Total 200 ml 1600 ml BalanceBalance 160 ml -720 ml Medications Medications Current Medications IV Flush (NS 3 ml) 3 ml PER PROTOCOL IV ; Start 06/10/18 at 17:00 Acetaminophen (Tylenol Tab) 650 mg Q6H PRN PO PAIN LEVEL 1-3 OR FEVER; Start 06/10/18 at 17:00 Acetaminophen/ Hydrocodone Bitart ([place] (5/325)) 1 tab Q6H PRN PO PAIN LEVEL 4-6; Start 06/10/18 at 17:00 Morphine Sulfate (morphine) 6 mg Q4H PRN PO SEVERE PAIN LEVEL 7-10; Start 06/12/18 at 14:30 Trimethoprim/ Sulfamethoxazole (Bactrim (Ds)) 1 tab BID NGT Last administered on 06/20/18 09:44; Admin Dose 1 TAB; Start 06/12/18 at 21:00 Silver Sulfadiazine (Thermazene 1% 25 Gm) 1 applic BID TOP Last administered on 06/19/18at 20:56; Admin Dose 1 APPLIC; Start 06/12/18 at 21:00 Lisinopril (Zestril) 10 mg DAILY PO Last administered on 06/20/18at 09:45; Admin Dose 10 MG; Start 06/14/18 at 09:00 Ferrous Sulfate (Ferrous Sulfate (Ec)) 325 mg DAILY PO Last administered on 06/20/18 09:44; Admin Dose 325 MG; Start 06/19/18 at 09:00 Clotrimazole (Lotrimin Cr) 1 applic BID TOP Last administered on 06/19/18at 20:54; Admin Dose 1 APPLIC; Start 06/19/18 at 21:00 Neomycin/ Polymyxin/ Bacitracin (Neosporin Topical Oint) 1 applic BID TOP Last administered on 06/19/18at 20:55; Admin Dose 1 APPLIC; Start 06/19/18 at 21:00 Olanzapine (Zyprexa Zydis) 10 mg BID ODT ; Start 06/20/18 at 21:00 TRIXIE THACKER Jun 20, 2018 14:10
[2018-06-20 20:00] VITALS: BP 109/61; PULSE 70; RESP 18
[2018-06-21] VITALS (7 sets, daily range): BP systolic 114–136; BP diastolic 48–62; PULSE 54–82; RESP 18
[2018-06-21] MEDS: OLANZAPINE (ODT) 5 MG TAB ODT SCH ×3 (08:17→20:11)
[2018-06-21] MEDS: TRIMETHOPRIM/SULFAMETHOX (DS) TAB NGT SCH (08:17)
[2018-06-21] MEDS: FERROUS SULFATE (EC) 325 MG TAB PO SCH ×2 (08:17→09:00)
[2018-06-21] MEDS: CLOTRIMAZOLE 1% 30 GM CR TOP SCH ×2 (08:18→20:11)
[2018-06-21] MEDS: LISINOPRIL 10 MG TAB PO SCH (08:18)
[2018-06-21] MEDS: NEOMYC/POLYMYX/BACIT 30 GM OINT TOP SCH ×2 (08:18→20:11)
[2018-06-21] MEDS: SILVER SULFADIAZINE 1% 25 GM CR TOP SCH ×2 (08:19→20:11)
--- NOTE | 2018-06-21 08:40 | PN ---
Date/Time of Note Date/Time of Note DATE: 06/21/18 TIME: 08:40 Assessment/Plan VTE Prophylaxis Risk score (from Nsg)>0 risk: 3 SCD applied (from Ns): No SCD contraindicated: patient refusal Pharmacological prophylaxis: heparin Pharm contraindication: patient refusal Lines/Catheters IV Catheter Type (from Nrsg): no iv site Urinary Cath still in place: No Assessment/Plan Assessment/Plan 1. Bilateral cellulitis- resolved - No erythema appreciated and denies any pain. Able to ambulate without any issues - Continue local care to area as patient allows. Keeps refusing the lotion despite encouragement - Wound culture results noted and ID on board and appreciate recommendations. Continue on PO Bactrim. Currently on day 12 of antibiotics. - Venous ultrasound to rule out DVT, negative - Echocardiogram noted 2. Onychocryptosis, right hallux with contusion. - Podiatry on board and appreciate consultation. will continue with local wound care and topical antifungal/antibiotics. 3. Mood disorder - Patient now refusing Zyrexa but remains pleasant but still ranting about Obama and satan affecting his SSI - Patient is with paranoid delusions - Psych evaluation appreciated and placed patient on Zyprexa 4. Hypertension - Stable 5. Anemia, chronic - likely iron deficiency - Given IV iron and transitioned to PO. Refusing iron supplements 6. Large left-sided inguinal hernia - Asymptomatic, patient had for 10 years, follow-up outpatient. 7. Disposition - Lower extremities improved significantly. Still with paranoid thoughts and SW/CM working on SNF placement - Patient requesting to see Financial counselor regarding his SSI benefits with goals of renting an apartment after discharge. Results 24hrs Laboratory Tests Test 06/20/18 09:40 Lab Scanned Report REFERENCE LAB Subjective 24 Hr Interval Summary Free Text/Dictation Patient remains pleasant but now refusing iron and Zyprexa. States he was homeless for 31 months since Scott Obama was controlled his SSI. Requesting to speak with Financial counselor since goal is to get his SSI and rent an apartment by himself. Discussed placement and states he is skeptical about being sent anywhere. No acute overnight events. Exam/Review of Systems Vital Signs Vitals Vital Signs Date Temp Pulse Resp B/P (MAP) Pulse Ox O2 O2 Flow FiO2 Time Delivery Rate 06/21/18 98.7 78 18 117/52 92 Room Air 08:00 (73) Intake and Output 06/20/18 06/20/18 06/21/18 1515:00 23:00 07:00 IntakeIntake Total 1040 ml 240 ml OutputOutput Total 1100 ml 900 ml 525 ml BalanceBalance -60 ml -660 ml -525 ml Exam General: Patient is laying in bed. no acute distress. pleasant and answering questions appropriately Respiratory: Clear to auscultation bilaterally. no wheezing or rhonchi Cardiovascular: regular rate and rhythm, no obvious murmurs Gastrointestinal: soft, non-tender to palpation, nondistended, bowel sounds heard. no rebound or guarding Neurological: Moves all extremities spontaneously Skin: Chronic skin changes on lower extremities. dryness improving. left calf with small patch of flaking skin and healing scabs. arms with thickening of skin. right great toe with bandage in place, no discharge or drainage Medications Medications Current Medications IV Flush (NS 3 ml) 3 ml PER PROTOCOL IV ; Start 06/10/18 at 17:00 Acetaminophen (Tylenol Tab) 650 mg Q6H PRN PO PAIN LEVEL 1-3 OR FEVER; Start 06/10/18 at 17:00 Acetaminophen/ Hydrocodone Bitart ([place] (5/325)) 1 tab Q6H PRN PO PAIN LEVEL 4-6; Start 06/10/18 at 17:00 Morphine Sulfate (morphine) 6 mg Q4H PRN PO SEVERE PAIN LEVEL 7-10; Start 06/12/18 at 14:30 Trimethoprim/ Sulfamethoxazole (Bactrim (Ds)) 1 tab BID NGT Last administered on 06/21/18at 08:17; Admin Dose 1 TAB; Start 06/12/18 at 21:00 Silver Sulfadiazine (Thermazene 1% 25 Gm) 1 applic BID TOP Last administered on 06/21/18at 08:19; Admin Dose 1 APPLIC; Start 06/12/18 at 21:00 Lisinopril (Zestril) 10 mg DAILY PO Last administered on 06/21/18at 08:18; Admin Dose 10 MG; Start 06/14/18 at 09:00 Ferrous Sulfate (Ferrous Sulfate (Ec)) 325 mg DAILY PO Last administered on 06/20/18at 09:44; Admin Dose 325 MG; Start 06/19/18 at 09:00 Clotrimazole (Lotrimin Cr) 1 applic BID TOP Last administered on 06/21/18at 08:18; Admin Dose 1 APPLIC; Start 06/19/18 at 21:00 Neomycin/ Polymyxin/ Bacitracin (Neosporin Topical Oint) 1 applic BID TOP Last administered on 06/21/18at 08:18; Admin Dose 1 APPLIC; Start 06/19/18 at 21:00 Olanzapine (Zyprexa Zydis) 10 mg BID ODT ; Start 06/20/18 at 21:00 KENNETH LALA MD Jun 21, 2018 08:40
--- NOTE | 2018-06-21 12:59 | CONS ---
Date/Time of Note Date/Time of Note DATE: 06/21/18 TIME: 12:57 Consultation Date/Type/Reason Admit Date/Time Jun 10, 2018 at 16:55 Initial Consult Date SUBJECTIVE: PT is awake, alert, no fevers. declining labs. VS: stable T: 98.7 LABS: reviewed. none today MICRO: Left lower extremity drainage culture growing Proteus vulgaris, susceptible to Bactrim. Antimicrobials: Bactrim DS Physical examination: GEN: Well-developed well-nourished elderly man who is alert in no distress. HENT: Head atraumatic normocephalic sclera nonicteric. Neck is supple. Pulm: Chest rise symmetrical. Breath sounds clear. Heart: S1-S2. ABDOMEN: soft bowel sounds present. Extremities with bilateral lower extremities chronic changes. Left lower extremity cellulitis with some scaly dry skin no drainage presently Assessment: 1. Acute on chronic bilateral lower extremity cellulitis, left more than right 2. Systemic inflammatory response syndrome with leukocytosis on admission 3. Homelessness 4. Anemia Plan: Patient remained stable. Will D/C Bactrim DS at this time. Treatment has been completed. Monitor off of antbx. Continue topical Silvadene Exam/Review of Systems Vital Signs Vitals Vital Signs Date Temp Pulse Resp B/P (MAP) Pulse Ox O2 O2 Flow FiO2 Time Delivery Rate 06/21/18 98.7 78 18 117/52 92 Room Air 08:00 (73) Intake and Output 06/20/18 06/20/18 06/21/18 1515:00 23:00 07:00 IntakeIntake Total 1040 ml 240 ml OutputOutput Total 1100 ml 900 ml 525 ml BalanceBalance -60 ml -660 ml -525 ml Medications Medications Current Medications IV Flush (NS 3 ml) 3 ml PER PROTOCOL IV ; Start 06/10/18 at 17:00 Acetaminophen (Tylenol Tab) 650 mg Q6H PRN PO PAIN LEVEL 1-3 OR FEVER; Start 06/10/18 at 17:00 Acetaminophen/ Hydrocodone Bitart ([place] (5/325)) 1 tab Q6H PRN PO PAIN LEVEL 4-6; Start 06/10/18 at 17:00 Morphine Sulfate (morphine) 6 mg Q4H PRN PO SEVERE PAIN LEVEL 7-10; Start 06/12/18 at 14:30 Silver Sulfadiazine (Thermazene 1% 25 Gm) 1 applic BID TOP Last administered on 06/21/18 08:19; Admin Dose 1 APPLIC; Start 06/12/18 at 21:00 Lisinopril (Zestril) 10 mg DAILY PO Last administered on 06/21/18at 08:18; Admin Dose 10 MG; Start 06/14/18 at 09:00 Ferrous Sulfate (Ferrous Sulfate (Ec)) 325 mg DAILY PO Last administered on 06/20/18at 09:44; Admin Dose 325 MG; Start 06/19/18 at 09:00 Clotrimazole (Lotrimin Cr) 1 applic BID TOP Last administered on 06/21/18 08:18; Admin Dose 1 APPLIC; Start 06/19/18 at 21:00 Neomycin/ Polymyxin/ Bacitracin (Neosporin Topical Oint) 1 applic BID TOP Last administered on 06/21/18at 08:18; Admin Dose 1 APPLIC; Start 06/19/18 at 21:00 Olanzapine (Zyprexa Zydis) 10 mg BID ODT ; Start 06/20/18 at 21:00 TRIXIE THACKER Jun 21, 2018 12:59
[2018-06-22 01:43] VITALS: BP 119/58; PULSE 69; RESP 18
[2018-06-22 08:00] VITALS: BP 119/59; PULSE 62; RESP 16
[2018-06-22] MEDS: FERROUS SULFATE (EC) 325 MG TAB PO SCH (08:50)
[2018-06-22] MEDS: NEOMYC/POLYMYX/BACIT 30 GM OINT TOP SCH ×2 (08:55→20:30)
[2018-06-22] MEDS: SILVER SULFADIAZINE 1% 25 GM CR TOP SCH ×2 (08:55→20:30)
[2018-06-22] MEDS: LISINOPRIL 10 MG TAB PO SCH (08:55)
[2018-06-22] MEDS: OLANZAPINE (ODT) 5 MG TAB ODT SCH ×2 (08:56→20:24)
[2018-06-22] MEDS: CLOTRIMAZOLE 1% 30 GM CR TOP SCH ×2 (08:56→20:30)
--- NOTE | 2018-06-22 10:10 | PN ---
Date/Time of Note Date/Time of Note DATE: 06/22/18 TIME: 10:09 Objective Vitals Vital Signs Date Temp Pulse Resp B/P (MAP) Pulse Ox O2 O2 Flow FiO2 Time Delivery Rate 06/22/18 98.5 62 16 119/59 95 Room Air 08:00 (79) Intake and Output 06/21/18 06/21/18 06/22/18 1414:59 22:59 06:59 IntakeIntake Total 760 ml 480 ml OutputOutput Total 900 ml 625 ml 1175 ml BalanceBalance -140 ml -625 ml -695 ml Medications Medications Current Medications IV Flush (NS 3 ml) 3 ml PER PROTOCOL IV ; Start 06/10/18 at 17:00 Acetaminophen (Tylenol Tab) 650 mg Q6H PRN PO PAIN LEVEL 1-3 OR FEVER; Start 06/10/18 at 17:00 Acetaminophen/ Hydrocodone Bitart ([place] (5/325)) 1 tab Q6H PRN PO PAIN LEVEL 4-6; Start 06/10/18 at 17:00 Morphine Sulfate (morphine) 6 mg Q4H PRN PO SEVERE PAIN LEVEL 7-10; Start 06/12/18 at 14:30 Silver Sulfadiazine (Thermazene 1% 25 Gm) 1 applic BID TOP Last administered on 06/22/18at 08:55; Admin Dose 1 APPLIC; Start 06/12/18 at 21:00 Lisinopril (Zestril) 10 mg DAILY PO Last administered on 06/22/18at 08:55; Admin Dose 10 MG; Start 06/14/18 at 09:00 Ferrous Sulfate (Ferrous Sulfate (Ec)) 325 mg DAILY PO Last administered on 06/22/18at 08:50; Admin Dose 325 MG; Start 06/19/18 at 09:00 Clotrimazole (Lotrimin Cr) 1 applic BID TOP Last administered on 06/22/18at 08:56; Admin Dose 1 APPLIC; Start 06/19/18 at 21:00 Neomycin/ Polymyxin/ Bacitracin (Neosporin Topical Oint) 1 applic BID TOP Last administered on 06/22/18at 08:55; Admin Dose 1 APPLIC; Start 06/19/18 at 21:00 Olanzapine (Zyprexa Zydis) 10 mg BID ODT ; Start 06/20/18 at 21:00 VTE Prophylaxis Risk score (from Nsg)>0 risk: 3 [place]CD [place] [facility] [place]CD contraindication: other Lines/Catheters IV Catheter Type: Peace in Place: No Assessment/Plan Hospital Course Subjective Patient complaining of constipation, no other acute complaints, patient continues to refuse blood draws Objective Physical exam General: Patient is laying in bed and answers questions appropriately Mentation: Patient is alert and oriented 4, Head: Normocephalic atraumatic Eyes: EOMI, pupils reactive to light Neck: Supple, nontender, midline Respiratory: Clear to auscultation bilaterally Cardiovascular: regular rate, no obvious murmurs Gastrointestinal: non-tender to palpation, bowel sounds heard. Neurological: Moves all extremities spontaneously Skin: Bilateral lower extremity flaking and healing scabs. Right great toe bandage in place Assessment/Plan 1. Bilateral cellulitis- resolved - No erythema appreciated and denies any pain. Able to ambulate without any issues - Continue local care to area as patient allows. Keeps refusing the lotion despite encouragement - Wound culture results noted and ID on board and appreciate recommendations. Finished PO bactrim - Venous ultrasound to rule out DVT, negative - Echocardiogram noted 2. Onychocryptosis, right hallux with contusion. - Podiatry on board and appreciate consultation. will continue with local wound care and topical antifungal/antibiotics. 3. Mood disorder - Patient now refusing Zyrexa but remains pleasant but still ranting about Obama and satan affecting his SSI - Patient is with paranoid delusions - Psych evaluation appreciated and placed patient on Zyprexa, but now refusing 4. Hypertension - Stable 5. Anemia, chronic - likely iron deficiency - Given IV iron and transitioned to PO. Refusing iron supplements 6. Large left-sided inguinal hernia - Asymptomatic, patient had for 10 years, follow-up outpatient. 7. Disposition - Lower extremities improved significantly. Still with paranoid thoughts and SW/CM working on SNF placement - Patient requesting to see Financial counselor regarding his SSI benefits with goals of renting an apartment after discharge. LITZY MARCIAL Jun 22, 2018 10:10
[2018-06-22] MEDS: DOCUSATE SODIUM 100 MG CAP PO SCH ×2 (13:09→20:24)
--- NOTE | 2018-06-22 14:40 | CONS ---
Date/Time of Note Date/Time of Note DATE: 06/22/18 TIME: 14:39 Assessment/Plan Assessment/Plan Hospital Course No acute changes, alert, looks comfortable Physical examination: Well-developed well-nourished elderly man who is alert in no distress. Head atraumatic normocephalic sclera nonicteric. Neck is supple. Chest rise symmetrical. Breath sounds clear. Heart: S1-S2. Abdomen soft bowel sounds present. Extremities with bilateral lower extremities chronic changes. Left lower extremity cellulitis with some scaly dry skin no drainage Assessment: 1. Acute on chronic bilateral lower extremity cellulitis==> resolved 2. Systemic inflammatory response syndrome with leukocytosis on admission 3. Homelessness 4. Anemia Plan: Patient remained stable. Extremities look much better, continue topical Silvadene Consultation Date/Type/Reason Admit Date/Time Jun 10, 2018 at 16:55 Initial Consult Date Type of Consult id Exam/Review of Systems Vital Signs Vitals Vital Signs Date Temp Pulse Resp B/P (MAP) Pulse Ox O2 O2 Flow FiO2 Time Delivery Rate 06/22/18 98.5 62 16 119/59 95 Room Air 08:00 (79) Intake and Output 06/21/18 06/21/18 06/22/18 1515:00 23:00 07:00 IntakeIntake Total 760 ml 480 ml OutputOutput Total 900 ml 625 ml 1175 ml BalanceBalance -140 ml -625 ml -695 ml Medications Medications Current Medications IV Flush (NS 3 ml) 3 ml PER PROTOCOL IV ; Start 06/10/18 at 17:00 Acetaminophen (Tylenol Tab) 650 mg Q6H PRN PO PAIN LEVEL 1-3 OR FEVER; Start 06/10/18 at 17:00 Acetaminophen/ Hydrocodone Bitart ([place] (5/325)) 1 tab Q6H PRN PO PAIN LEVEL 4-6; Start 06/10/18 at 17:00 Morphine Sulfate (morphine) 6 mg Q4H PRN PO SEVERE PAIN LEVEL 7-10; Start 06/12/18 at 14:30 Silver Sulfadiazine (Thermazene 1% 25 Gm) 1 applic BID TOP Last administered on 06/22/18at 08:55; Admin Dose 1 APPLIC; Start 06/12/18 at 21:00 Lisinopril (Zestril) 10 mg DAILY PO Last administered on 1/14/19at 08:55; Admin Dose 10 MG; Start 06/14/18 at 09:00 Ferrous Sulfate (Ferrous Sulfate (Ec)) 325 mg DAILY PO Last administered on 06/22/18 08:50; Admin Dose 325 MG; Start 06/19/18 at 09:00 Clotrimazole (Lotrimin Cr) 1 applic BID TOP Last administered on 06/22/18 08:56; Admin Dose 1 APPLIC; Start 06/19/18 at 21:00 Neomycin/ Polymyxin/ Bacitracin (Neosporin Topical Oint) 1 applic BID TOP Last administered on 06/22/18at 08:55; Admin Dose 1 APPLIC; Start 06/19/18 at 21:00 Olanzapine (Zyprexa Zydis) 10 mg BID ODT ; Start 06/20/18 at 21:00 Docusate Sodium (Colace) 100 mg BID PO Last administered on 06/22/18at 13:09; Admin Dose 100 MG; Start 06/22/18 at 10:30 DEMODN HOWELL NP Jun 22, 2018 14:40
[2018-06-22 20:07] VITALS: BP 135/54; PULSE 70; RESP 16
[2018-06-23 02:59] VITALS: BP 111/54; PULSE 63; RESP 16
[2018-06-23] MEDS: DOCUSATE SODIUM 100 MG CAP PO SCH ×2 (08:04→21:12)
[2018-06-23] MEDS: FERROUS SULFATE (EC) 325 MG TAB PO SCH (08:04)
[2018-06-23] MEDS: OLANZAPINE (ODT) 5 MG TAB ODT SCH ×3 (08:04→21:00)
[2018-06-23] MEDS: LISINOPRIL 10 MG TAB PO SCH (08:05)
[2018-06-23] MEDS: NEOMYC/POLYMYX/BACIT 30 GM OINT TOP SCH ×2 (08:06→21:13)
[2018-06-23] MEDS: SILVER SULFADIAZINE 1% 25 GM CR TOP SCH ×2 (08:06→21:22)
[2018-06-23] MEDS: CLOTRIMAZOLE 1% 30 GM CR TOP SCH ×2 (08:06→21:19)
[2018-06-23 08:09] VITALS: BP 115/55; PULSE 69; RESP 18
--- NOTE | 2018-06-23 13:33 | PN ---
Date/Time of Note Date/Time of Note DATE: 06/23/18 TIME: 13:31 Objective Vitals Vital Signs Date Temp Pulse Resp B/P (MAP) Pulse Ox O2 O2 Flow FiO2 Time Delivery Rate 06/23/18 97.7 69 18 115/55 94 Room Air 08:09 (75) Intake and Output 06/22/18 06/22/18 06/23/18 1414:59 22:59 06:59 IntakeIntake Total 480 ml OutputOutput Total 950 ml BalanceBalance -470 ml Medications Medications Current Medications IV Flush (NS 3 ml) 3 ml PER PROTOCOL IV ; Start 06/10/18 at 17:00 Acetaminophen (Tylenol Tab) 650 mg Q6H PRN PO PAIN LEVEL 1-3 OR FEVER; Start 06/10/18 at 17:00 Acetaminophen/ Hydrocodone Bitart ([place] (5/325)) 1 tab Q6H PRN PO PAIN LEVEL 4-6; Start 06/10/18 at 17:00 Morphine Sulfate (morphine) 6 mg Q4H PRN PO SEVERE PAIN LEVEL 7-10; Start 06/12/18 at 14:30 Silver Sulfadiazine (Thermazene 1% 25 Gm) 1 applic BID TOP Last administered on 06/23/18at 08:06; Admin Dose 1 APPLIC; Start 06/12/18 at 21:00 Ferrous Sulfate (Ferrous Sulfate (Ec)) 325 mg DAILY PO Last administered on 06/23/18at 08:04; Admin Dose 325 MG; Start 06/19/18 at 09:00 Clotrimazole (Lotrimin Cr) 1 applic BID TOP Last administered on 06/23/18at 08:06; Admin Dose 1 APPLIC; Start 06/19/18 at 21:00 Neomycin/ Polymyxin/ Bacitracin (Neosporin Topical Oint) 1 applic BID TOP Last administered on 06/23/18at 08:06; Admin Dose 1 APPLIC; Start 06/19/18 at 21:00 Olanzapine (Zyprexa Zydis) 10 mg BID ODT Last administered on 06/23/18at 08:04; Admin Dose 10 MG; Start 06/20/18 at 21:00 Docusate Sodium (Colace) 100 mg BID PO Last administered on 06/23/18at 08:04; Admin Dose 100 MG; Start 06/22/18 at 10:30 Lisinopril (Zestril) 5 mg DAILY PO ; Start 06/24/18 at 09:00 VTE Prophylaxis Risk score (from Nsg)>0 risk: 4 SCD applied (from Nsg): No SCD contraindication: other Lines/Catheters IV Catheter Type: Peace in Place: No Assessment/Plan Hospital Course Subjective no acute overnight events Objective Physical exam General: Patient is laying in bed and answers questions appropriately Mentation: Patient is alert and oriented 4 at times, but also has paranoid delusions Head: Normocephalic atraumatic Eyes: EOMI, pupils reactive to light Neck: Supple, nontender, midline Respiratory: Clear to auscultation bilaterally Cardiovascular: regular rate, no obvious murmurs Gastrointestinal: non-tender to palpation, bowel sounds heard. Neurological: Moves all extremities spontaneously Skin: Bilateral lower extremity flaking and healing scabs. Right great toe bandage in place Assessment/Plan 1. Bilateral cellulitis- resolved - No erythema appreciated and denies any pain. Able to ambulate without any issues - Continue local care to area as patient allows. Keeps refusing the lotion despite encouragement - Wound culture results noted and ID on board and appreciate recommendations. Finished PO bactrim - Venous ultrasound to rule out DVT, negative - Echocardiogram noted 2. Onychocryptosis, right hallux with contusion. - Podiatry on board and appreciate consultation. will continue with local wound care and topical antifungal/antibiotics. 3. Mood disorder - Patient now refusing Zyrexa but remains pleasant but still ranting about Obama and satan affecting his SSI - Patient is with paranoid delusions - Psych evaluation appreciated and placed patient on Zyprexa, but now refusing 4. Hypertension - Stable 5. Anemia, chronic - likely iron deficiency - Given IV iron and transitioned to PO. Refusing iron supplements 6. Large left-sided inguinal hernia - Asymptomatic, patient had for 10 years, follow-up outpatient. 7. Disposition - Lower extremities improved significantly. Still with paranoid thoughts and SW/CM working on SNF placement - Patient requesting to see Financial counselor regarding his SSI benefits with goals of renting an apartment after discharge. - will have Nyla, senior staff psychologist reassess patient to determine if patient capable of making decisions. LITZY MARCIAL Jun 23, 2018 13:33
[2018-06-23 13:54] VITALS: BP 128/79; PULSE 79; RESP 16
--- NOTE | 2018-06-23 16:03 | CONS ---
Date/Time of Note Date/Time of Note DATE: 06/23/18 TIME: 16:02 Assessment/Plan Assessment/Plan Hospital Course Alert, feels good, bilateral lower extremities with chronic dry skin and discoloration physical examination: Well-developed well-nourished elderly man who is alert in no distress. Head atraumatic normocephalic sclera nonicteric. Neck is supple. Chest rise symmetrical. Breath sounds clear. Heart: S1-S2. Abdomen soft bowel sounds present. Extremities with bilateral lower extremities chronic changes. Left lower extremity cellulitis with some scaly dry skin no drainage Assessment: 1. Acute on chronic bilateral lower extremity cellulitis==> resolved 2. Systemic inflammatory response syndrome with leukocytosis on admission 3. Homelessness 4. Anemia Plan: Patient remained stable. Extremities look much better, continue topical Silvadene Consultation Date/Type/Reason Admit Date/Time Jun 10, 2018 at 16:55 Initial Consult Date Type of Consult id Exam/Review of Systems Vital Signs Vitals Vital Signs Date Temp Pulse Resp B/P (MAP) Pulse Ox O2 O2 Flow FiO2 Time Delivery Rate 06/23/18 98.1 79 16 128/79 96 Room Air 13:54 (95) Intake and Output 06/22/18 06/22/18 06/23/18 1515:00 23:00 07:00 IntakeIntake Total 480 ml OutputOutput Total 950 ml BalanceBalance -470 ml Medications Medications Current Medications IV Flush (NS 3 ml) 3 ml PER PROTOCOL IV ; Start 06/10/18 at 17:00 Acetaminophen (Tylenol Tab) 650 mg Q6H PRN PO PAIN LEVEL 1-3 OR FEVER; Start 06/10/18 at 17:00 Acetaminophen/ Hydrocodone Bitart ([place] (5/325)) 1 tab Q6H PRN PO PAIN LEVEL 4-6; Start 06/10/18 at 17:00 Morphine Sulfate (morphine) 6 mg Q4H PRN PO SEVERE PAIN LEVEL 7-10; Start 06/12/18 at 14:30 Silver Sulfadiazine (Thermazene 1% 25 Gm) 1 applic BID TOP Last administered on 06/23/18at 08:06; Admin Dose 1 APPLIC; Start 06/12/18 at 21:00 Ferrous Sulfate (Ferrous Sulfate (Ec)) 325 mg DAILY PO Last administered on 06/23/18at 08:04; Admin Dose 325 MG; Start 06/19/18 at 09:00 Clotrimazole (Lotrimin Cr) 1 applic BID TOP Last administered on 06/23/18at 08:06; Admin Dose 1 APPLIC; Start 06/19/18 at 21:00 Neomycin/ Polymyxin/ Bacitracin (Neosporin Topical Oint) 1 applic BID TOP Last administered on 06/23/18at 08:06; Admin Dose 1 APPLIC; Start 06/19/18 at 21:00 Olanzapine (Zyprexa Zydis) 10 mg BID ODT Last administered on 06/23/18at 08:04; Admin Dose 10 MG; Start 06/20/18 at 21:00 Docusate Sodium (Colace) 100 mg BID PO Last administered on 06/23/18 08:04; Admin Dose 100 MG; Start 06/22/18 at 10:30 Lisinopril (Zestril) 5 mg DAILY PO ; Start 06/24/18 at 09:00 DEMOND HOWELL NP Jun 23, 2018 16:03
--- NOTE | 2018-06-23 17:45 | CONS ---
Date/Time of Note Date/Time of Note DATE: 06/23/18 TIME: 17:43 Consult Date/Type/Reason Admit Date Jun 10, 2018 at 16:55 Type of Consult Psych Subjective Patient is a 78-year-old male who is currently pacing back and forth on the unit. On a [id number] evaluation patient is irritable states to the interviewer to get out of my site and leave me alone. Called the social media strategist and we attempted to approach him however patient declined and continued yearly notes the social media strategist and interview with stating "leave me alone" patient has poor coping skills, and at this point is difficult to determine if he is gravely disabled or not Objective Patient Appearance: Relaxed Voice Loudness: Moderately Loud Mood and Affect Description: Angry Mood or Affect: Uncooperative Thought Process: Tangential Hallucination Type: None Delusion Description: Not Present Assessment/Plan Recommendations Continue current medication FATOUMATA KABA NP Jun 23, 2018 17:45
[2018-06-23 19:48] VITALS: BP 127/60; PULSE 80; RESP 18
[2018-06-24 02:24] VITALS: BP 109/49; PULSE 70; RESP 16
[2018-06-24 07:57] VITALS: BP 116/55; PULSE 81; RESP 18
[2018-06-24] MEDS: FERROUS SULFATE (EC) 325 MG TAB PO SCH (08:23)
[2018-06-24] MEDS: NEOMYC/POLYMYX/BACIT 30 GM OINT TOP SCH ×2 (08:24→09:00)
[2018-06-24] MEDS: DOCUSATE SODIUM 100 MG CAP PO SCH (08:25)
[2018-06-24] MEDS: SILVER SULFADIAZINE 1% 25 GM CR TOP SCH ×3 (08:25→15:52)
[2018-06-24] MEDS: OLANZAPINE (ODT) 5 MG TAB ODT SCH (08:28)
[2018-06-24] MEDS: CLOTRIMAZOLE 1% 30 GM CR TOP SCH ×2 (08:28→09:00)
[2018-06-24] MEDS ORDERED: LISINOPRIL 5 MG TAB PO SCH (09:00)
[2018-06-24] MEDS ORDERED: FER325 PO (12:26)
[2018-06-24] MEDS ORDERED: NEOM28OI2 TOP (12:26)
[2018-06-24] MEDS ORDERED: CLO15CR1 TOP (12:26)
--- NOTE | 2018-06-24 12:41 | DS ---
Date/Time of Note Date/Time of Note DATE: 06/24/18 TIME: 12:41 Discharge Summary Admission/Discharge Info Admit Date/Time Jun 10, 2018 at 16:55 Discharge Date/Time Patient Condition: Stable Hx of Present Illness Patient is a homeless male with unknown past medical history who states that he was on the streets and came in complaining of left leg pain. Upon entry to the ED patient was noted to have a copious amount of bugs and what appeared to be lice on his head and emergency staff admitted patient for bilateral cellulitis. Patient also has a very large inguinal hernia on the left however he states that he has had this for over 10 years and does not bother him. Patient only complains of leg pain worse on the left and during this time he has already been decontaminated by the ED staff and appears clean however his da silva was shaved off and he does have lipsmacking movement and states that he is constantly paranoid. ED staff has also talked to him and explained that he needs constant redirection and states that something about Obama and other issues. 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 Patient was diagnosed with bilateral cellulitis due to his homeless status and was treated by infectious disease. Patient continued to exhibit strange behavior including paranoid delusions however was apparently alert and oriented to many aspects of life. It is still uncertain if patient is oriented to situation or insight into situation however patient refuses to see or talk speak to a psychiatrist. At this time patient will be sent to a assisted facility as he has finished all his antibiotic therapy and is very pleasant but does not appear to have full insight into his situation. Podiatry also saw his feet for possible ingrown toenail and suggested antibiotic ointment as well as antifungal medication for his tinea pedis.. Patient's cellulitis is healing well and should be just lorena tor. Of note patient does have a large left-sided inguinal hernia that he has had for 10 years that is asystematic. It is recommended that he follow-up outpatient for elective surgery. Patient is also iron deficient and on iron supplements. Patient was originally also on hypertension medication but that was likely due to pain, as patient's leg improved, the need for blood pressure medication was not deemed necessary. Discharge diagnosis Bilateral cellulitis, resolved Onychocryptosis Mood disorder, paranoid delusions Hypertension Anemia Large left-sided inguinal hernia Home Meds Active Scripts Neomycin Mcclure/Bacitrac Zn/Poly (Triple Antibiotic Ointment) 28 Gm Oint...g., 1 APPLIC TOP BID for 30 Days apply to both feet/toes Prov:LITZY MARCIAL 06/24/18 Clotrimazole (Clotrim) 15 Gm Cr, 1 APPLIC TOP BID for 30 Days to both feet/toes Prov:LITZY MARCIAL 06/24/18 Ferrous Sulfate* (Ferrous Sulfate*) 325 Mg Tabec, 325 MG PO DAILY for 30 Days, #30 TAB Prov:LITZY MARCIAL 06/24/18 Primary Care Provider Care Physician No Primary Time spent on discharge: > 30 minutes LITZY MARCIAL Jun 24, 2018 12:41
[2018-06-24 14:00] VITALS: BP 139/60; PULSE 72; RESP 18
[2018-06-24] MEDS ORDERED: LORAZEPAM 0.5 MG TAB PO ONE (14:30)
== END 2018-06-24 16:32 | DRG 603 ==
LOC: E/R 11:46 → 2NE 16:55 → 5EC 06-12 17:15
PROVIDERS: ADMIT Internal Medicine; ATTEND Internal Medicine
DX: L03.115 Cellulitis of right lower limb (principal); B85.4 Mixed pediculosis and phthiriasis; Z59.0 Homelessness; L03.116 Cellulitis of left lower limb; L60.0 Ingrowing nail; F39 Unspecified mood [affective] disorder; I10 Essential (primary) hypertension; D64.9 Anemia, unspecified; K40.90 Unilateral inguinal hernia, without obstruction or gangrene, not specified as recurrent
CPT/HCPCS: 36415; 70260; 80053; 80202; 80307; 81003; 82728; 83010; 83036; 83540; 83605; 83615; 83735; 85025; 85045; 87040; 87070; 93306; 93970; 96374; J0696; J1644; J2543; J2916; J3370; J7030; J7050